=== PATIENT | female | born 1955 | race African-American/Black ===

== ENCOUNTER 2016-12-28 10:07 | Observation (INO) | payer OTHER ==
[2016-12-28] VITALS (9 sets, daily range): BP systolic 124–179; BP diastolic 58–81; PULSE 61–90; RESP 16–21; TEMP 97.8–98.8; O2SAT 96–100
[~2016-12-28] VITALS: Ht 170.2 cm; Wt 75.0 kg
[~2016-12-28 10:07] MED LIST: AMIT100 PO; ARMO250T PO; CYAN1000P IM; DEXT20TA2 PO; ERGO50000 PO; IRON325T2 PO; LISI-586 PO; LOMO2.5T PO; METF500 PO; ROSU20 PO; TAB-TAB PO; ZOFR4TAB3 SL; ZOLO50TA PO; vimovo PO
[2016-12-28 12:37] LABS: AUTOMATED NEUTROPHIL # 5.3 TH/MM3 (1.8-7.7); BASOPHIL % 0.3 % (0.0-2.0); EOSINOPHIL # 0.1 TH/MM3 (0-0.4); EOSINOPHIL % 0.9 % (0.0-4.0); HEMATOCRIT 34.6 % (35.0-46.0); HEMO FLAGS DIFF FINAL; LYMPH % 23.1 % (9.0-44.0); LYMPHOCYTE # 1.8 TH/MM3 (1.0-4.8); MEAN CORPUSCULAR HEMOGLOBIN 29.3 PG (27.0-34.0); MONO % 7.6 % (0.0-8.0); NEUT % 68.1 % (16.0-70.0); PLATELET COUNT 299 TH/MM3 (150-450); RED BLOOD COUNT 4.02 MIL/MM3 (4.00-5.30); RED CELL DISTRIBUTION WIDTH 14.1 % (11.6-17.2); WHITE BLOOD COUNT 7.8 TH/MM3 (4.0-11.0)
[2016-12-28] MEDS ORDERED: LISI20TA PO (12:37)
[2016-12-28] MEDS ORDERED: QUES4POW PO (12:37)
[2016-12-28] MEDS ORDERED: ARMO250T PO (12:37)
[2016-12-28] MEDS ORDERED: ADDE20XR PO (12:37)
[2016-12-28 12:42] LABS: BACTERIA, URINE RARE /hpf; BLOOD, URINE NEG (NEG); COMMENT (UR) CULT NOT INDICATED; CULTURE IF INDICATED CULT NOT INDICATED; GLUCOSE,URINE NEG (NEG); HYALINE CAST, URINE 2 /lpf (RARE); KETONE, URINE NEG (NEG); MUCUS URINE FEW /lpf (OCC); NITRITE,URINE NEG (NEG); SQUAMOUS EPITHELIAL CELL URINE <1 /hpf (0-5); TRANSITIONAL EPI CELLS, URINE <1 /hpf; URINE COLOR YELLOW (YELLW/STRAW)
[2016-12-28 12:48] LABS: PROTHROMBIN TIME - PATIENT 10.9 SEC (9.8-11.6)
[2016-12-28 12:49] LABS: ALT (GPT) 33 U/L (10-53); ANION GAP 5 MEQ/L (5-15); AST (GOT) 17 U/L (15-37); BICARBONATE 30.5 MEQ/L (21.0-32.0); BLOOD UREA NITROGEN 21 MG/DL (7-18); CHLORIDE 104 MEQ/L (98-107); GLOMERULAR FILTRATION RATE 62 ML/MIN (>89); POTASSIUM 3.9 MEQ/L (3.5-5.1); SODIUM (NA) 139 MEQ/L (136-145)
[2016-12-28] MEDS ORDERED: METF500T PO (12:51)
[2016-12-28] MEDS ORDERED: ZOLO100T PO (12:52)
[2016-12-28] MEDS ORDERED: DRIS50002 PO (12:52)
[2016-12-28] MEDS ORDERED: LORA1TAB12 PO (12:52)
[2016-12-28] MEDS ORDERED: ZOFR4TAB3 SL (12:52)
[2016-12-28] MEDS ORDERED: LACTCAP8 PO (12:52)
[2016-12-28] MEDS ORDERED: FERR325T PO (12:52)
[2016-12-28] MEDS ORDERED: CYAN1000P IM (12:52)
[2016-12-28] MEDS ORDERED: MULT-135 PO (12:52)
[2016-12-28] MEDS ORDERED: MSIR15 PO (12:52)
[2016-12-28] MEDS ORDERED: CALC600T25 PO (12:52)
[2016-12-28] MEDS ORDERED: ROSU20 PO (12:52)
[2016-12-28 12:53] LABS: ALKALINE PHOSPHATASE 100 U/L (45-117); TOTAL BILIRUBIN ADULT 0.4 MG/DL (0.2-1.0)
[2016-12-28] MEDS ORDERED: GABA600T PO (12:53)
[2016-12-28 12:54] LABS: CREATINE KINASE 50 U/L (26-192)
--- NOTE | 2016-12-28 12:59 | RADRPT ---
EXAM DATE/TIME: 12/28/2016 12:20 [facility] COMPARISON: CHEST SINGLE AP, September 11, 2015, 19:06. INDICATIONS : Chest pain, feels like something heavy is on chest MEDICAL HISTORY : Pancreatitis. SURGICAL HISTORY : cervical fusion ENCOUNTER: Initial ACUITY: 1 day PAIN SCORE: 8/10 LOCATION: Bilateral chest FINDINGS: A single view of the chest demonstrates the lungs to be symmetrically aerated without evidence of mas s, infiltrate or effusion. The cardiomediastinal contours are unremarkable. Osseous structures are intact. CONCLUSION: No acute disease. Renzo Frazier MD on December 28, 2016 at 12:57 Board Certified Radiologist. This report was verified electronically.
--- NOTE | 2016-12-28 13:10 | PD ---
HPI Chief Complaint: Chest Pain Time Seen by Provider: 11:59 Travel History International Travel<30 days: No Contact w/Intl Traveler<30days: No Traveled to known affect area: No History of Present Illness HPI 61-year-old female complains of chest pain. Patient states that the pain started 2 days ago. Patient states the pain is across anterior chest wall pressure pain with radiation to the neck. Patient denies any palpitation nausea vomiting diaphoresis. Patient denies any fever chills. Patient denies any coughing congestion. Patient states the pain is worse with exertion. Patient states that she had normal thallium stress test done a year ago outside the [facility]. Patient has history hypertension, diabetes, dyslipidemia. Patient is a nonsmoker. Patient has family history of heart disease. PFSH Past Medical History Hx Anticoagulant Therapy: No Autoimmune Disease: No Anxiety: Yes Depression: Yes Heart Rhythm Problems: No Cancer: No Cardiovascular Problems: Yes (HTN) High Cholesterol: Yes Chemotherapy: No Chest Pain: No Congestive Heart Failure: No Cerebrovascular Accident: No Diabetes: Yes Patient Takes Glucophage: Yes (12/27/16 0700) Diminished Hearing: No Endocrine: No Gastrointestinal Disorders: Yes (IBS, FECAL INCONT.) Genitourinary: No Hepatitis: No Hiatal Hernia: No Hypertension: Yes Immune Disorder: No Musculoskeletal: Yes (ARTHRITIS, LUMBAR RADICULOPATHY NUMBNESS IN LEFT TOES) Neurologic: Yes Psychiatric: Yes Reproductive: No Respiratory: Yes (CHRONIC COUGH WITH POST NASAL DRIP) Thyroid Disease: No Tetanus Vaccination: < 5 Years Influenza Vaccination: Yes ?: Not Menopausal: Yes : 3 Para: 3 Miscarriage: 0 : 0 Past Surgical History Abdominal Surgery: Yes (ELKE.,GASTRIC BYPASS,BOWEL REPAIR WITH MESH,) AICD: No Appendectomy: Yes Arteriovenous Shunt: No Cardiac Surgery: No Cholecystectomy: Yes Ear Surgery: No Endocrine Surgery: No Eye Surgery: No Genitourinary Surgery: Yes (RECTAL SPHINCTOPLASTY,) Gynecologic Surgery: Yes (HYSTERECTOMY,) Hysterectomy: Yes Insulin Pump: No Joint Replacement: No Neurologic Surgery: No Oral Surgery: Yes (TONSILLECTOMY) Pacemaker: No Thoracic Surgery: No Other Surgery: Yes (LEFT ROTATOR CUFF REPAIR) Social History Alcohol Use: No Tobacco Use: No Substance Use: No Allergies-Medications (Allergen,Severity, Reaction): Coded Allergies: Codeine (Verified Allergy, Severe, SHARP, INTENSE ABDOMINAL PAIN, 12/28/16) Latex (Verified Allergy, Severe, ANAPHYLAXIS, 12/28/16) Lortab (Verified Allergy, Severe, Itching, 12/28/16) Percodan (Verified Allergy, Severe, Itching, 12/28/16) Talwin (Verified Allergy, Severe, SHORTNESS OF BREATH, 12/28/16) Vicodin (Verified Allergy, Severe, Itching, 12/28/16) Uncoded Allergies: VIBERZI (Allergy, Severe, PAIN, 07/03/16) Reported Meds & Prescriptions Reported Meds & Active Scripts Active Reported Gabapentin 600 Mg Tab 600 Mg PO TID Zoloft (Sertraline HCl) 100 Mg Tab 150 Mg PO DAILY Morphine IR (Morphine Sulfate) 15 Mg Tab 15 Mg PO TID PRN Lorazepam 1 Mg Tab 1 Mg PO HS Crestor (Rosuvastatin Calcium) 20 Mg Tab 20 Mg PO HS Ferrous Sulfate 325 Mg Tab 325 Mg PO BID Cyanocobalamin Inj (Cyanocobalamin) 1,000 Mcg/Ml Inj 1,000 Mcg IM Q30D Drisdol (Ergocalciferol) 50,000 Unit Cap 50,000 Units PO Q7D Calcium (Calcium Carbonate) 600 Mg Tab 600 Mg PO BID Multi Vitamin (Multiple Vitamin) 1 Tab Tab 1 Tab PO DAILY Probiotic (Lactobacillus Acidophilus) 1 Cap Cap 1 Cap PO DAILY Zofran Odt (Ondansetron Odt) 4 Mg Tab 4 Mg SL Q6HR PRN Metformin (Metformin HCl) 500 Mg Tab 500 Mg PO DAILY With a meal Questran (Cholestyramine) 4 Gm/Pkt Powd 4 Gm PO BID 1 packet contains 4gm of cholestyramine. Lisinopril-Hctz 20-12.5 Mg Tab 1 Tab PO DAILY Nuvigil (Armodafinil) 250 Mg Tab 250 Mg PO DAILY Adderall Xr 24 HR (Amphetamine/Dextroamphetamine) 20 Mg Cap 20 Mg PO DAILY Once daily in the morning. Review of Systems General / Constitutional: No: Fever Eyes: No: Visual changes HENT: No: Headaches Cardiovascular: Positive: Chest Pain or Discomfort Respiratory: No: Shortness of Breath Gastrointestinal: No: Abdominal Pain Genitourinary: No: Dysuria Musculoskeletal: No: Pain Skin: No Rash Neurologic: No: Weakness Psychiatric: No: Depression Endocrine: No: Polydipsia Hematologic/Lymphatic: No: Easy Bruising Physical Exam Narrative GENERAL: Well-nourished, well-developed patient. SKIN: Warm and dry. HEAD: Normocephalic. EYES: No scleral icterus. No injection or drainage. NECK: Supple, trachea midline. No JVD or lymphadenopathy. CARDIOVASCULAR: Regular rate and rhythm without murmurs, gallops, or rubs. RESPIRATORY: Breath sounds equal bilaterally. No accessory muscle use. GASTROINTESTINAL: Abdomen soft, non-tender, nondistended. MUSCULOSKELETAL: No cyanosis, or edema. BACK: Nontender without obvious deformity. No CVA tenderness. Neurologic exam normal. Data Data Last Documented VS Vital Signs Date Time Temp Pulse Resp B/P Pulse Ox O2 Delivery O2 Flow Rate FiO2 12/28/16 13:02 62 17 135/61 99 Room Air 12/28/16 10:09 97.8 Orders Electrocardiogram (12/28/16 ) Complete Blood Count With Diff (12/28/16 12:09) Comprehensive Metabolic Panel (12/28/16 12:09) Creatine Kinase (Cpk) (12/28/16 12:09) Troponin I (12/28/16 12:09) Prothrombin Time / Inr (Pt) (12/28/16 12:09) Act Partial Throm Time (Ptt) (12/28/16 12:09) Urinalysis - C+S If Indicated (12/28/16 12:09) Chest, Single Ap (12/28/16 12:09) Iv Access Insert/Monitor (12/28/16 12:09) Ecg Monitoring (12/28/16 12:09) Oximetry (12/28/16 12:09) Labs Laboratory Tests Test 12/28/16 12/28/16 12:14 12:20 White Blood Count 7.8 TH/MM3 Red Blood Count 4.02 MIL/MM3 Hemoglobin 11.8 GM/DL Hematocrit 34.6 % Mean Corpuscular Volume 86.0 FL Mean Corpuscular Hemoglobin 29.3 PG Mean Corpuscular Hemoglobin 34.0 % Concent Red Cell Distribution Width 14.1 % Platelet Count 299 TH/MM3 Mean Platelet Volume 7.5 FL Neutrophils (%) (Auto) 68.1 % Lymphocytes (%) (Auto) 23.1 % Monocytes (%) (Auto) 7.6 % Eosinophils (%) (Auto) 0.9 % Basophils (%) (Auto) 0.3 % Neutrophils # (Auto) 5.3 TH/MM3 Lymphocytes # (Auto) 1.8 TH/MM3 Monocytes # (Auto) 0.6 TH/MM3 Eosinophils # (Auto) 0.1 TH/MM3 Basophils # (Auto) 0.0 TH/MM3 CBC Comment DIFF FINAL Differential Comment Prothrombin Time 10.9 SEC Prothromb Time International 1.0 RATIO Ratio Activated Partial 25.0 SEC Thromboplast Time Sodium Level 139 MEQ/L Potassium Level 3.9 MEQ/L Chloride Level 104 MEQ/L Carbon Dioxide Level 30.5 MEQ/L Anion Gap 5 MEQ/L Blood Urea Nitrogen 21 MG/DL Creatinine 1.08 MG/DL Estimat Glomerular Filtration 62 ML/MIN Rate Random Glucose 74 MG/DL Calcium Level 9.1 MG/DL Total Bilirubin 0.4 MG/DL Aspartate Amino Transf 17 U/L (AST/SGOT) Alanine Aminotransferase 33 U/L (ALT/SGPT) Alkaline Phosphatase 100 U/L Total Creatine Kinase 50 U/L Troponin I LESS THAN 0.02 NG/ML Total Protein 7.1 GM/DL Albumin 3.6 GM/DL Urine Color YELLOW Urine Turbidity CLEAR Urine pH 5.0 Urine Specific [place] 1.015 Urine Protein NEG mg/dL Urine Glucose (UA) NEG mg/dL Urine Ketones NEG mg/dL Urine Occult Blood NEG Urine Nitrite NEG Urine Bilirubin NEG Urine Urobilinogen 2.0 MG/DL Urine Leukocyte Esterase MOD Urine RBC 1 /hpf Urine WBC 3 /hpf Urine Squamous Epithelial <1 /hpf Cells Urine Transitional Epithelial <1 /hpf Cells Urine Bacteria RARE /hpf Urine Hyaline Casts 2 /lpf Urine Mucus FEW /lpf Microscopic Urinalysis Comment CULT NOT INDICATED MDM Medical Decision Making Medical Screen Exam Complete: Yes Emergency Medical Condition: Yes Interpretation(s) 1308 p.m. EKG shows sinus rhythm nonspecific ST-T wave change. Last Impressions Chest X-Ray 12/28/16 1209 Signed Impressions: Service Date/Time: Wednesday, December 28, 2016 12:20 - CONCLUSION: No acute disease. Renzo Frazier MD 1308 p.m. CBC within normal limit. CMP within normal limit. BUN 21. Creatinine 1.08. Cardiac enzymes are normal. UA is negative. Differential Diagnosis Differential diagnosis including musculoskeletal, angina, IN, PE, pneumothorax. Narrative Course 61-year-old female with chest pain. Diagnosis Primary Impression: Chest pain Qualified Code: R07.9 - Chest pain, unspecified type Admitting Information Admitting Physician Requests: Observation Tom Baker MD Dec 28, 2016 13:10
[2016-12-28] MEDS ORDERED: ACETAMINOPHEN 500 MG CPLT PO PRN (13:30)
[2016-12-28] MEDS ORDERED: SODIUM CHLORIDE 0.9% FLUSH 5 ML FLUSH IVF PRN (13:30)
[2016-12-28] MEDS ORDERED: NITROGLYCERIN 0.4 MG SL 25 TABS/BTL SL PRN (14:00)
[2016-12-28] MEDS ORDERED: DEXTROSE 50% IN WATER 50 ML VIAL(D50) IV PRN (14:00)
[2016-12-28] MEDS ORDERED: MORPHINE SULFATE 15 MG TAB PO PRN (14:00)
[2016-12-28] MEDS ORDERED: ALPRAZolam 0.25 MG TAB PO PRN (14:00)
[2016-12-28] MEDS ORDERED: GLUCAGON 1 MG/ML VIAL IM/SQ PRN (14:00)
--- NOTE | 2016-12-28 14:08 | HHI.HP ---
[facility] Primary Care Physician Claudio Yee M.D. Chief Complaint Chest pain History of Present Illness This is a 61-year-old female that presents to the ED complaining of a discomfort across her chest that's been intermittently present for a week. She states the discomfort primarily presents when she does activities like walking. Rarely has it occurred at rest but when it does it is when she is getting ready for bed in the evening. She states the discomfort will last for about an hour when it occurs. Nothing to improve when occurs. She had times has been nauseous and he did take some Zofran that she has at home. She also has at times been a little diaphoretic. She has not noticed shortness of breath. She has history of chronic pancreatitis but has had no abdominal discomfort. She states she had a chemical stress test a little more than a year ago before moving here from [place]. Review of Systems General: Patient denies fevers, chills recent, and recent travel HEENT: Patient denies headache, sore throat, difficulty swallowing. Cardiovascular: Has the chest discomfort as mentioned above. Denies sensation of heart beating rapidly or irregularly. She has had some diaphoresis. No syncope. Respiratory: Denies shortness of breath or inspirational chest discomfort. Denies coughing wheezing or hemoptysis. GI: She has had some nausea. Patient denies vomiting, diarrhea, abdominal pain , bloody stools. Musculoskeletal: Patient denies joint pain or edema. Denies calf pain or edema. Neurovascular: Patient denies numbness, tingling, weakness in extremities. Denies headache. Endocrine: Denies polyuria and polydipsia. Hematologic: Denies easy bruising. Skin: Denies rash or itching. Past Family Social History Allergies: Coded Allergies: Codeine (Verified Allergy, Severe, SHARP, INTENSE ABDOMINAL PAIN, 12/28/16) Latex (Verified Allergy, Severe, ANAPHYLAXIS, 12/28/16) Lortab (Verified Allergy, Severe, Itching, 12/28/16) Percodan (Verified Allergy, Severe, Itching, 12/28/16) Talwin (Verified Allergy, Severe, SHORTNESS OF BREATH, 12/28/16) Vicodin (Verified Allergy, Severe, Itching, 12/28/16) Uncoded Allergies: VIBERZI (Allergy, Severe, PAIN, 07/03/16) Past Medical History Hypertension, diabetes, hyperlipidemia, chronic pancreatitis, and idiopathic hypersomnia. Denies CAD. Past Surgical History Left rotator cuff repair, tonsillectomy, hysterectomy, cholecystectomy, appendectomy. Reported Medications Reported Meds & Active Scripts Active Reported Gabapentin 600 Mg Tab 600 Mg PO TID Zoloft (Sertraline HCl) 100 Mg Tab 150 Mg PO DAILY Morphine IR (Morphine Sulfate) 15 Mg Tab 15 Mg PO TID PRN Lorazepam 1 Mg Tab 1 Mg PO DAILY PRN Crestor (Rosuvastatin Calcium) 20 Mg Tab 20 Mg PO HS Ferrous Sulfate 325 Mg Tab 325 Mg PO BID Cyanocobalamin Inj (Cyanocobalamin) 1,000 Mcg/Ml Inj 1,000 Mcg IM Q30D Drisdol (Ergocalciferol) 50,000 Unit Cap 50,000 Units PO WEEKLY ON WEDNESDAYS Calcium (Calcium Carbonate) 600 Mg Tab 600 Mg PO BID Multi Vitamin (Multiple Vitamin) 1 Tab Tab 1 Tab PO DAILY Probiotic (Lactobacillus Acidophilus) 1 Cap Cap 1 Cap PO DAILY Zofran Odt (Ondansetron Odt) 4 Mg Tab 4 Mg SL Q6HR PRN Metformin (Metformin HCl) 500 Mg Tab 500 Mg PO DAILY With a meal Questran (Cholestyramine) 4 Gm/Pkt Powd 4 Gm PO BID 1 packet contains 4gm of cholestyramine. Lisinopril-Hctz 20-12.5 Mg Tab 1 Tab PO DAILY Nuvigil (Armodafinil) 250 Mg Tab 250 Mg PO DAILY Adderall Xr 24 HR (Amphetamine/Dextroamphetamine) 20 Mg Cap 20 Mg PO DAILY Once daily in the morning. Active Ordered Medications Current Medications Medications (Trade) Dose Ordered Sig/Nyla Route Start Time Stop Time Status Last Admin (NS Flush) 2 ml UNSCH PRN IVF 12/28/16 13:30 (NS Flush) 2 ml BID IVF 12/28/16 21:00 (Tylenol) 500 mg Q4H PRN PO 12/28/16 13:30 (Zofran Inj) 4 mg Q6H PRN IV 12/28/16 14:00 (Nitrostat Sl) 0.4 mg Q5M PRN SL 12/28/16 14:00 (Questran 4 Gm Pkt) 4 gm BID PO 12/28/16 21:00 UNV (Ferrous Sulfate) 325 mg BID PO 12/28/16 21:00 UNV (Neurontin) 600 mg TID PO 12/28/16 18:00 UNV (Theragran) 1 tab DAILY PO 12/29/16 09:00 UNV (Zoloft) 150 mg DAILY PO 12/29/16 09:00 UNV Non-Formulary Medication 1 tab DAILY PO 12/29/16 09:00 UNV Non-Formulary Medication 20 mg HS PO 12/28/16 21:00 UNV Family History The patient's mother had a stent at age 66. Social History Patient is a lifetime nonsmoker. She denies alcohol use and illicit drug use. Physical Exam Vital Signs Vital Signs Date Time Temp Pulse Resp B/P Pulse Ox O2 Delivery O2 Flow Rate FiO2 12/28/16 13:02 62 17 135/61 99 Room Air 12/28/16 12:32 100 Room Air 12/28/16 12:08 64 16 100 Room Air 12/28/16 12:07 61 16 179/81 100 Room Air 12/28/16 10:09 97.8 90 16 139/63 100 Physical Exam GENERAL: This is a well-nourished, well-developed patient, in no apparent distress. Patient speaks in clear complete sentences. Patient is pleasant. HEENT: Head is atraumatic and normocephalic. Neck is supple without lymphadenopathy and trachea is midline. No JVD or carotid bruits. CARDIOVASCULAR: Regular rate and rhythm without murmurs, gallops, or rubs. RESPIRATORY: Clear to auscultation. Breath sounds equal bilaterally. No wheezes , rales, or rhonchi. Chest wall is nontender. No use of accessory muscles. GASTROINTESTINAL: Abdomen is nontender, nondistended. Abdomen soft. No obvious pulsatile mass or bruit. No CVA tenderness. Strong femoral pulses bilaterally. Normal bowel sounds in all quadrants. MUSCULOSKELETAL: Patient is moving upper and lower extremities freely. No calf tenderness or edema, no Homans sign. Strong pulses in upper and lower extremities. NEUROLOGICAL: Patient is alert and oriented. Cranial nerves 2-12 are grossly intact. No focal deficits and speech is clear. SKIN: No rash and turgor is normal. Laboratory Laboratory Tests Test 12/28/16 12/28/16 12:14 12:20 White Blood Count 7.8 Red Blood Count 4.02 Hemoglobin 11.8 Hematocrit 34.6 Mean Corpuscular Volume 86.0 Mean Corpuscular Hemoglobin 29.3 Mean Corpuscular Hemoglobin 34.0 Concent Red Cell Distribution Width 14.1 Platelet Count 299 Mean Platelet Volume 7.5 Neutrophils (%) (Auto) 68.1 Lymphocytes (%) (Auto) 23.1 Monocytes (%) (Auto) 7.6 Eosinophils (%) (Auto) 0.9 Basophils (%) (Auto) 0.3 Neutrophils # (Auto) 5.3 Lymphocytes # (Auto) 1.8 Monocytes # (Auto) 0.6 Eosinophils # (Auto) 0.1 Basophils # (Auto) 0.0 CBC Comment DIFF FINAL Differential Comment Prothrombin Time 10.9 Prothromb Time International 1.0 Ratio Activated Partial 25.0 Thromboplast Time Sodium Level 139 Potassium Level 3.9 Chloride Level 104 Carbon Dioxide Level 30.5 Anion Gap 5 Blood Urea Nitrogen 21 Creatinine 1.08 Estimat Glomerular Filtration 62 Rate Random Glucose 74 Calcium Level 9.1 Total Bilirubin 0.4 Aspartate Amino Transf 17 (AST/SGOT) Alanine Aminotransferase 33 (ALT/SGPT) Alkaline Phosphatase 100 Total Creatine Kinase 50 Troponin I LESS THAN 0.02 Total Protein 7.1 Albumin 3.6 Urine Color YELLOW Urine Turbidity CLEAR Urine pH 5.0 Urine Specific [place] 1.015 Urine Protein NEG Urine Glucose (UA) NEG Urine Ketones NEG Urine Occult Blood NEG Urine Nitrite NEG Urine Bilirubin NEG Urine Urobilinogen 2.0 Urine Leukocyte Esterase MOD Urine RBC 1 Urine WBC 3 Urine Squamous Epithelial <1 Cells Urine Transitional Epithelial <1 Cells Urine Bacteria RARE Urine Hyaline Casts 2 Urine Mucus FEW Microscopic Urinalysis Comment CULT NOT INDICATED Result Diagram: 12/28/16 1214 12/28/16 1214 Imaging Last 24 hours Impressions Chest X-Ray 12/28/16 1209 Signed Impressions: Service Date/Time: Wednesday, December 28, 2016 12:20 - CONCLUSION: No acute disease. Renzo Frazier MD Course Initial EKG has sinus rhythm without significant ST segment depressions or elevations. Assessment and Plan Assessment and Plan * Chest pain: Patient will continue to have serial cardiac enzymes and EKGs for ruling out purposes. She will be seen by Dr. Luis Cordova of cardiology and the chest pain center. She will have a Lexiscan in the morning if she rules out. She will be discharged home if her stress test were to be nonischemic. * Hypertension: Continue current medication. * Hyperlipidemia: Continue current medications. * Diabetes: We will hold her metformin. Patient will be on sliding scale insulin coverage while the chest pain center. She will be advised to follow a diabetic diet and resume her medication at discharge. * Chronic pancreatitis: Continue current medication and continue her follow-up with her PCP. * Idiopathic hypersomnia: Patient will resume her medication at discharge. Nigel Maldonado Dec 28, 2016 14:08
[2016-12-28] MEDS: INSULIN ASPART SUPPLEMENTAL SCALE SQ SCH ×2 (16:00→21:00)
[2016-12-28 16:21] LABS: CREATINE KINASE 44 U/L (26-192)
--- NOTE | 2016-12-28 17:12 | EKG ---
Date Performed: 12/28/2016 Time Performed: 10:22:20 PTAGE: 61 years EKG: Sinus rhythm Compared to prior tracing no significant change NORMAL ECG PREVIOUS TRACING : 05/24/2016 17.39 DOCTOR: Edgar Johnson Interpretating Date/Time 12/28/2016 17:01:28
[2016-12-28] MEDS: GABAPENTIN 300 MG CAP PO SCH (17:45)
[2016-12-28 19:23] LABS: CREATINE KINASE 41 U/L (26-192)
[2016-12-28] MEDS: CHOLESTYRAMINE 4 GM PACKET PO SCH (20:19)
[2016-12-28] MEDS: ONDANSETRON HCL 4 MG/2 ML VIAL IV PRN (20:19)
[2016-12-28] MEDS ORDERED: NON-FORMULARY DRUG (Rosuvastatin (Crestor) 20 MG) PO SCH (21:00)
[2016-12-28] MEDS ORDERED: ATORVASTATIN 40 MG TAB PO SCH (21:00)
[2016-12-28] MEDS: FERROUS SULFATE 325 MG (65 MG ELEMENTAL IRON) TAB PO SCH (22:07)
[2016-12-28] MEDS: SODIUM CHLORIDE 0.9% FLUSH 5 ML FLUSH IVF SCH (22:11)
[2016-12-29] VITALS: PULSE 60
[2016-12-29 00:06] VITALS: BP 109/59; PULSE 69; RESP 18; TEMP 98.8; O2SAT 98
[2016-12-29 04:00] VITALS: PULSE 61
[2016-12-29 05:54] VITALS: BP 134/76; PULSE 78; RESP 18; TEMP 98.8; O2SAT 97
[2016-12-29] MEDS: INSULIN ASPART SUPPLEMENTAL SCALE SQ SCH (06:39)
[2016-12-29 07:25] VITALS: BP 112/56; PULSE 60; RESP 20; TEMP 98.1; O2SAT 96
[2016-12-29] MEDS: FERROUS SULFATE 325 MG (65 MG ELEMENTAL IRON) TAB PO SCH (08:53)
[2016-12-29] MEDS: GABAPENTIN 300 MG CAP PO SCH (08:54)
[2016-12-29] MEDS: SODIUM CHLORIDE 0.9% FLUSH 5 ML FLUSH IVF SCH (08:54)
[2016-12-29] MEDS: CHOLESTYRAMINE 4 GM PACKET PO SCH (08:54)
[2016-12-29] MEDS ORDERED: LISINOPRIL HCTZ PO SCH (09:00)
[2016-12-29] MEDS ORDERED: MULTIVITAMIN TAB PO SCH (09:00)
[2016-12-29] MEDS ORDERED: SERTRALINE HCL 50 MG TAB PO SCH (09:00)
[2016-12-29] MEDS ORDERED: HYDROCHLOROTHIAZIDE 12.5 MG CAP PO SCH (09:00)
[2016-12-29] MEDS ORDERED: LISINOPRIL 20 MG TAB PO SCH (09:00)
[2016-12-29] MEDS ORDERED: REGADENOSON INJ 0.4 MG/5 ML SYR ONE (09:50)
--- NOTE | 2016-12-29 11:17 | RADRPT ---
EXAM DATE/TIME: 12/29/2016 09:19 [facility] COMPARISON: No previous studies available for comparison. INDICATIONS : Mid chest pain intermittent for one week. Angina. DOSE: 25.7 mCi Tc99m Myoview at stress. 8.7 mCi Tc99m Myoview at rest. 0.4 mg Lexiscan STRESS SYMPTOMS: Flush feeling. EJECTION FRACTION: 61% MEDICAL HISTORY : Hypertension. SURGICAL HISTORY : Appendectomy. Hysterectomy. Gastric bypass. ENCOUNTER: Initial ACUITY: 1 week PAIN SCALE: 4/10 LOCATION: Midsternal chest TECHNIQUE: The patient underwent pharmacologic stress with infusion of prescribed dose. Continuous ECG tracing was monitored during stress. Gated SPECT imaging was performed after stress and conventional SPECT i maging was performed at rest. The examination was performed on a SPECT/CT scanner, both attenuation and non-corrected datasets were reviewed. FINDINGS: DISTRIBUTION: The maximum perfused segment at stress is in the anterior wall. PERFUSION STUDY: There is a very small focus of reversible perfusion abnormality at the cardiac apex. GATED STUDY: There is intact wall motion and thickening without hypokinetic or dyskinetic segments. CONCLUSION: Small, mild focus of apical stress-induced ischemia. RISK CATEGORY: Intermediate Woody Sinha MD on December 29, 2016 at 11:15 Board Certified Radiologist. This report was verified electronically.
[2016-12-29] MEDS: ONDANSETRON HCL 4 MG/2 ML VIAL IV PRN (11:28)
[2016-12-29 11:34] VITALS: BP 117/56; PULSE 71; RESP 20; TEMP 98; O2SAT 95
[2016-12-29] MEDS ORDERED: NITR1SUB3 SL (12:40)
[2016-12-29] MEDS ORDERED: METO25TA3 PO (12:40)
--- NOTE | 2016-12-29 12:56 | HHI.DCPOC ---
Discharge Care Plan Diagnosis: (1) Chest pain (2) Hypertension (3) DM (diabetes mellitus) (4) Hyperlipidemia (5) Abnormal nuclear stress test Goals to Promote Your Health * To prevent worsening of your condition and complications * To maintain your health at the optimal level Directions to Meet Your Goals Take your medications as prescribed Follow your dietary instruction Follow activity as directed Keep your appointments as scheduled Take your immunizations and boosters as scheduled If your symptoms worsen call your PCP, if no PCP go to Urgent Care Center or Emergency Room Smoking is Dangerous to Your Health. Avoid second hand smoke Call the 24-hour hour crisis hotline for domestic abuse at Nigel Maldonado Dec 29, 2016 12:56
--- NOTE | 2016-12-29 16:43 | TR ---
Date Performed: 12/29/2016 Time Performed: 09:51:58 DOCTOR: Teto Pratt DRUG LIST: CLINICAL HISTORY: ANGINA REASON FOR TEST: Angina REASON FOR ENDING: OBSERVATION: CONCLUSION: Lexiscan stress test was performed under standard four minute protocol. Radionucl[place] e was injected one minute prior to ending the test. No electrocardiographic abormalities were present to suggest ischemia. Nuclear imaging and interpretation are pending. COMMENTS:
--- NOTE | 2016-12-29 16:48 | EKG ---
Date Performed: 12/28/2016 Time Performed: 15:25:30 PTAGE: 61 years EKG: Sinus rhythm NORMAL ECG PREVIOUS TRACING : 12/28/2016 10.22 Since previous tracing, no significant change noted DOCTOR: Teto Pratt Interpretating Date/Time 12/29/2016 16:47:59
--- NOTE | 2016-12-29 16:48 | EKG ---
Date Performed: 12/28/2016 Time Performed: 18:26:19 PTAGE: 61 years EKG: Sinus rhythm WITH OCCASIONAL VENTRICULAR PREMATURE COMPLEXES BORDERLINE ECG PREVIOUS TRACING : 12/28/2016 15.25 Since previous tracing, no significant change noted DOCTOR: Teto Pratt Interpretating Date/Time 12/29/2016 16:47:09
== END 2016-12-29 15:01 | disposition home or self-care (01) ==
LOC: NEPC 10:07 → NEDA 13:27 → NEPHCDU 15:59
PROVIDERS: ADMIT Internal Medicine Cardiovascular Disease; ATTEND Internal Medicine Cardiovascular Disease
DX: R07.9 Chest pain, unspecified (principal); I10 Essential (primary) hypertension; E11.9 Type 2 diabetes mellitus without complications; E78.5 Hyperlipidemia, unspecified; G47.11 Idiopathic hypersomnia with long sleep time; K86.1 Other chronic pancreatitis; R94.39 Abnormal result of other cardiovascular function study; E78.00 Pure hypercholesterolemia, unspecified; K58.9 Irritable bowel syndrome, unspecified; Z82.49 Family history of ischemic heart disease and other diseases of the circulatory system; Z98.84 Bariatric surgery status; Z79.84 Long term (current) use of oral hypoglycemic drugs
CPT/HCPCS: 71010; 78452; 80053; 81001; 82550; 82948; 84484; 85025; 85610; 85730; 93005; 93017; 99285; A9502; G0378; J2405; J2785

== ENCOUNTER 2017-01-09 14:15 | Emergency (ER) | payer OTHER ==
[~2017-01-09] VITALS: Ht 170.2 cm; Wt 72.5 kg
[~2017-01-09 14:15] MED LIST changes: +ADDE20XR PO; -AMIT100 PO; +CALC600T25 PO; -DEXT20TA2 PO; +DRIS50002 PO; -ERGO50000 PO; +FERR325T PO; +GABA600T PO; -IRON325T2 PO; +LACTCAP8 PO; -LISI-586 PO; +LISI20TA PO; -LOMO2.5T PO; +LORA1TAB12 PO; -METF500 PO; +METF500T PO; +METO25TA3 PO; +MSIR15 PO; +MULT-135 PO; +NITR1SUB3 SL; +QUES4POW PO; -TAB-TAB PO; +ZOLO100T PO; -ZOLO50TA PO; -vimovo PO
[2017-01-09 14:16] VITALS: BP 112/59; PULSE 94; RESP 18; TEMP 98.2; O2SAT 94
--- NOTE | 2017-01-09 15:03 | PD ---
HPI Chief Complaint: Abdominal Pain Time Seen by Provider: 15:03 Travel History International Travel<30 days: No Contact w/Intl Traveler<30days: No Traveled to known affect area: No History of Present Illness HPI 61-year-old female with history of gastric bypass, colon resection, pancreatitis , CAD, asthma, presents to emergency department for evaluation of acute onset abdominal pain in her epigastrium and left upper quadrant with associated nausea and vomiting. She states that she leave she may have aspirated some of the bile. This all started approximately one hour prior to arrival. Patient has not been recently ill. No fever or chills. No changes in bowel or bladder habits. Patient states this feels very similar to when she had an obstruction in the past. She has no other symptoms to report. PFSH Past Medical History Hx Anticoagulant Therapy: No Autoimmune Disease: No Anxiety: Yes Depression: Yes Heart Rhythm Problems: No Cancer: No Cardiac Catheterization: No Cardiovascular Problems: Yes High Cholesterol: Yes Chemotherapy: No Chest Pain: No Congestive Heart Failure: No Cerebrovascular Accident: No Diabetes: Yes Diminished Hearing: No Endocrine: No Gastrointestinal Disorders: Yes (IBS, FECAL INCONT.) Genitourinary: No Hepatitis: No Hiatal Hernia: No Hypertension: Yes Immune Disorder: No Musculoskeletal: Yes (ARTHRITIS, LUMBAR RADICULOPATHY NUMBNESS IN LEFT TOES) Neurologic: Yes Psychiatric: Yes Reproductive: No Respiratory: Yes (CHRONIC COUGH WITH POST NASAL DRIP) Thyroid Disease: No ?: Not Menopausal: Yes : 3 Para: 3 Miscarriage: 0 : 0 Past Surgical History Abdominal Surgery: Yes (ELKE.,GASTRIC BYPASS,BOWEL REPAIR WITH MESH,) AICD: No Appendectomy: Yes Arteriovenous Shunt: No Cardiac Surgery: No Cholecystectomy: Yes Coronary Artery Bypass Graft: No Ear Surgery: No Endocrine Surgery: No Eye Surgery: No Genitourinary Surgery: Yes (RECTAL SPHINCTOPLASTY,) Gynecologic Surgery: Yes (HYSTERECTOMY,) Hysterectomy: Yes Insulin Pump: No Joint Replacement: No Neurologic Surgery: No Oral Surgery: Yes (TONSILLECTOMY) Pacemaker: No Thoracic Surgery: No Other Surgery: Yes (LEFT ROTATOR CUFF REPAIR) Social History Alcohol Use: No Tobacco Use: No Substance Use: No Allergies-Medications (Allergen,Severity, Reaction): Coded Allergies: Codeine (Verified Allergy, Severe, SHARP, INTENSE ABDOMINAL PAIN, 01/09/17) Latex (Verified Allergy, Severe, ANAPHYLAXIS, 01/09/17) Lortab (Verified Allergy, Severe, Itching, 01/09/17) Percodan (Verified Allergy, Severe, Itching, 01/09/17) Talwin (Verified Allergy, Severe, SHORTNESS OF BREATH, 01/09/17) Vicodin (Verified Allergy, Severe, Itching, 01/09/17) Uncoded Allergies: VIBERZI (Allergy, Severe, PAIN, 07/03/16) Reported Meds & Prescriptions Reported Meds & Active Scripts Active Metoprolol Tartrate 25 Mg Tab 25 Mg PO BID Nitroglycerin SL (Nitroglycerin) 0.4 Mg Subl 0.4 Mg SL DIRECTED PRN ONE TABLET UNDER THE TONGUE NEEDED FOR CHEST PAIN, MAY REPEAT EVERY FIVE MINUTES FOR A TOTAL OF 3 DOSES OR CALL 911 IF NO RELIEF Reported Gabapentin 600 Mg Tab 600 Mg PO TID Zoloft (Sertraline HCl) 100 Mg Tab 150 Mg PO DAILY Morphine IR (Morphine Sulfate) 15 Mg Tab 15 Mg PO TID PRN Lorazepam 1 Mg Tab 1 Mg PO DAILY PRN Crestor (Rosuvastatin Calcium) 20 Mg Tab 20 Mg PO HS Ferrous Sulfate 325 Mg Tab 325 Mg PO BID Cyanocobalamin Inj (Cyanocobalamin) 1,000 Mcg/Ml Inj 1,000 Mcg IM Q30D Drisdol (Ergocalciferol) 50,000 Unit Cap 50,000 Units PO WEEKLY ON WEDNESDAYS Calcium (Calcium Carbonate) 600 Mg Tab 600 Mg PO BID Multi Vitamin (Multiple Vitamin) 1 Tab Tab 1 Tab PO DAILY Probiotic (Lactobacillus Acidophilus) 1 Cap Cap 1 Cap PO DAILY Zofran Odt (Ondansetron Odt) 4 Mg Tab 4 Mg SL Q6HR PRN Metformin (Metformin HCl) 500 Mg Tab 500 Mg PO DAILY With a meal Questran (Cholestyramine) 4 Gm/Pkt Powd 4 Gm PO BID 1 packet contains 4gm of cholestyramine. Lisinopril-Hctz 20-12.5 Mg Tab 1 Tab PO DAILY Nuvigil (Armodafinil) 250 Mg Tab 250 Mg PO DAILY Adderall Xr 24 HR (Amphetamine/Dextroamphetamine) 20 Mg Cap 20 Mg PO DAILY Once daily in the morning. Review of Systems Except as stated in HPI: all other systems reviewed are Neg Physical Exam Narrative GENERAL: Thin female patient, lying in bed in no acute distress. SKIN: Warm and dry. HEAD: Atraumatic. Normocephalic. EYES: Pupils equal and round. No scleral icterus. No injection or drainage. ENT: No nasal bleeding or discharge. Mucous membranes pink and moist. NECK: Trachea midline. No JVD. CARDIOVASCULAR: Elevated rate and rhythm. No murmur appreciated. RESPIRATORY: No accessory muscle use. Clear to auscultation. Breath sounds equal bilaterally. GASTROINTESTINAL: Abdomen soft, nondistended. Tenderness elicited palpation in the epigastrium.. Hepatic and splenic margins not palpable. MUSCULOSKELETAL: No obvious deformities. No clubbing. No cyanosis. No edema. NEUROLOGICAL: Awake and alert. No obvious cranial nerve deficits. Motor grossly within normal limits. Normal speech. PSYCHIATRIC: Appropriate mood and affect; insight and judgment normal. Data Data Last Documented VS Vital Signs Date Time Temp Pulse Resp B/P Pulse Ox O2 Delivery O2 Flow Rate FiO2 01/09/17 17:47 18 01/09/17 14:16 98.2 94 112/59 94 Room Air Orders Complete Blood Count With Diff (01/09/17 14:58) Comprehensive Metabolic Panel (01/09/17 14:58) Lipase (01/09/17 14:58) Prothrombin Time / Inr (Pt) (01/09/17 14:58) Act Partial Throm Time (Ptt) (01/09/17 14:58) Urinalysis - C+S If Indicated (01/09/17 14:58) Abdomen, Flat & Upright (01/09/17 ) Electrocardiogram (01/09/17 14:58) Chest, Single Ap (01/09/17 ) Ckmb (Isoenzyme) Profile (01/09/17 14:58) Troponin I (01/09/17 14:58) Urine Culture (01/09/17 15:25) Labs Laboratory Tests Test 01/09/17 01/09/17 15:15 15:25 White Blood Count 10.8 TH/MM3 Red Blood Count 3.64 MIL/MM3 Hemoglobin 10.3 GM/DL Hematocrit 32.0 % Mean Corpuscular Volume 87.8 FL Mean Corpuscular Hemoglobin 28.2 PG Mean Corpuscular Hemoglobin 32.2 % Concent Red Cell Distribution Width 13.8 % Platelet Count 222 TH/MM3 Mean Platelet Volume 7.2 FL Neutrophils (%) (Auto) 65.7 % Lymphocytes (%) (Auto) 21.9 % Monocytes (%) (Auto) 9.7 % Eosinophils (%) (Auto) 2.4 % Basophils (%) (Auto) 0.3 % Neutrophils # (Auto) 7.1 TH/MM3 Lymphocytes # (Auto) 2.4 TH/MM3 Monocytes # (Auto) 1.0 TH/MM3 Eosinophils # (Auto) 0.3 TH/MM3 Basophils # (Auto) 0.0 TH/MM3 CBC Comment DIFF FINAL Differential Comment Prothrombin Time 10.2 SEC Prothromb Time International 0.9 RATIO Ratio Activated Partial 23.4 SEC Thromboplast Time Sodium Level 136 MEQ/L Potassium Level 3.8 MEQ/L Chloride Level 102 MEQ/L Carbon Dioxide Level 25.4 MEQ/L Anion Gap 9 MEQ/L Blood Urea Nitrogen 31 MG/DL Creatinine 1.18 MG/DL Estimat Glomerular Filtration 56 ML/MIN Rate Random Glucose 52 MG/DL Calcium Level 8.6 MG/DL Total Bilirubin 0.2 MG/DL Aspartate Amino Transf 19 U/L (AST/SGOT) Alanine Aminotransferase 40 U/L (ALT/SGPT) Alkaline Phosphatase 111 U/L Total Creatine Kinase 37 U/L Troponin I LESS THAN 0.02 NG/ML Total Protein 6.7 GM/DL Albumin 3.0 GM/DL Lipase 151 U/L Urine Color LIGHT-YELLOW Urine Turbidity CLEAR Urine pH 5.0 Urine Specific [place] 1.012 Urine Protein NEG mg/dL Urine Glucose (UA) NEG mg/dL Urine Ketones NEG mg/dL Urine Occult Blood NEG Urine Nitrite NEG Urine Bilirubin NEG Urine Urobilinogen LESS THAN 2.0 MG/DL Urine Leukocyte Esterase LARGE Urine RBC 1 /hpf Urine WBC 23 /hpf Urine Squamous Epithelial 1 /hpf Cells Urine Transitional Epithelial 1 /hpf Cells Urine Bacteria OCC /hpf Urine Hyaline Casts 2 /lpf Urine Mucus FEW /lpf Microscopic Urinalysis Comment CULTURE INDICATED MDM Medical Decision Making Medical Screen Exam Complete: Yes Emergency Medical Condition: Yes Medical Record Reviewed: Yes Differential Diagnosis Pancreatitis versus gastritis versus GERD versus obstruction versus ACS Narrative Course 61-year-old female presents to emergency department for evaluation. Workup was initiated in triage. Once a medical bed becomes available, patient will be transferred and care assumed by that provider. Condition: Stable Shayna Martin Jan 09, 2017 15:03
[2017-01-09 15:48] LABS: AUTOMATED NEUTROPHIL # 7.1 TH/MM3 (1.8-7.7); BASOPHIL % 0.3 % (0.0-2.0); EOSINOPHIL # 0.3 TH/MM3 (0-0.4); EOSINOPHIL % 2.4 % (0.0-4.0); HEMO FLAGS DIFF FINAL; LYMPH % 21.9 % (9.0-44.0); LYMPHOCYTE # 2.4 TH/MM3 (1.0-4.8); MEAN CELL VOLUME 87.8 FL (80.0-100.0); MEAN CORPUSCULAR HEMOGLOBIN 28.2 PG (27.0-34.0); MEAN CORPUSCULAR HGB CONC 32.2 % (32.0-36.0); MONO % 9.7 % (0.0-8.0); NEUT % 65.7 % (16.0-70.0); PLATELET COUNT 222 TH/MM3 (150-450); RED BLOOD COUNT 3.64 MIL/MM3 (4.00-5.30); RED CELL DISTRIBUTION WIDTH 13.8 % (11.6-17.2); WHITE BLOOD COUNT 10.8 TH/MM3 (4.0-11.0)
[2017-01-09 15:56] LABS: APTT (PATIENT) 23.4 SEC (24.3-30.1); INTERNATIONAL NORMALIZED RATIO 0.9 RATIO; PROTHROMBIN TIME - PATIENT 10.2 SEC (9.8-11.6)
--- NOTE | 2017-01-09 15:57 | RADRPT ---
EXAM DATE/TIME: 01/09/2017 15:41 [facility] COMPARISON: CHEST SINGLE AP, December 28, 2016, 12:20. INDICATIONS : Evaluate for aspiration. Patient stated she vomited this afternoon; she has had a cough and upper abd omen pain since. MEDICAL HISTORY : Hypertension. Hypercholesterolemia. Hyperlididerma. Asthma. SURGICAL HISTORY : Cholecystectomy. Appendectomy. Hysterectomy. Gastric bypass. Rectal sphinctoplasty. Cervical fusion. ENCOUNTER: Initial ACUITY: 1 day PAIN SCORE: 4/10 LOCATION: Bilateral chest FINDINGS: A single view of the chest demonstrates the lungs to be symmetrically aerated without evidence of mas s, infiltrate or effusion. The cardiomediastinal contours are unremarkable. Osseous structures are intact. CONCLUSION: No acute disease. Truman Rosales MD FACR on January 09, 2017 at 15:55 Board Certified Radiologist. This report was verified electronically.
--- NOTE | 2017-01-09 16:04 | RADRPT ---
EXAM DATE/TIME: 01/09/2017 15:40 [facility] COMPARISON: No previous studies available for comparison. INDICATIONS : Vomited today. Patient stated she vomited this afternoon; she has had a cough and upper abdomen pain since.>> MEDICAL HISTORY : Hypertension. Hypercholesterolemia. Hyperlipidemia. Asthma. SURGICAL HISTORY : Cholecystectomy. Appendectomy. Hysterectomy. Gastric bypass. Rectal sphinctopl asty. Cervical fusion. ENCOUNTER: Initial ACUITY: 1 day PAIN SCORE: 4/10 LOCATION: Abdomen, upper quadrant. FINDINGS: The lung bases are clear. Evidence for previous surgery is seen in the right upper eileen drant. Bowel gas pattern is unremarkable. There is no free air. Moderate stool is seen throughout the colon. CONCLUSION: Moderate stool throughout the colon otherwise negative. Truman Rosales MD FACR on January 09, 2017 at 15:55 Board Certified Radiologist. This report was verified electronically.
[2017-01-09 16:05] LABS: BACTERIA, URINE OCC /hpf; BLOOD, URINE NEG (NEG); COMMENT (UR) CULTURE INDICATED; CULTURE IF INDICATED CULTURE INDICATED; GLUCOSE,URINE NEG (NEG); HYALINE CAST, URINE 2 /lpf (RARE); KETONE, URINE NEG (NEG); MUCUS URINE FEW /lpf (OCC); NITRITE,URINE NEG (NEG); SQUAMOUS EPITHELIAL CELL URINE 1 /hpf (0-5); TRANSITIONAL EPI CELLS, URINE 1 /hpf; URINE COLOR LIGHT-YELLOW (YELLW/STRAW)
[2017-01-09 16:15] LABS: ANION GAP 9 MEQ/L (5-15); AST (GOT) 19 U/L (15-37); BICARBONATE 25.4 MEQ/L (21.0-32.0); BLOOD UREA NITROGEN 31 MG/DL (7-18); CHLORIDE 102 MEQ/L (98-107); GLOMERULAR FILTRATION RATE 56 ML/MIN (>89); POTASSIUM 3.8 MEQ/L (3.5-5.1); SODIUM (NA) 136 MEQ/L (136-145)
[2017-01-09 16:20] LABS: ALKALINE PHOSPHATASE 111 U/L (45-117); ALT (GPT) 40 U/L (10-53); TOTAL BILIRUBIN ADULT 0.2 MG/DL (0.2-1.0)
[2017-01-09 16:27] LABS: CREATINE KINASE 37 U/L (26-192)
[2017-01-09] MEDS ORDERED: DEXAMETHASONE SOD PHOS 20 MG/5 ML VIAL IV PUSH ONE (18:15)
[2017-01-09] MEDS ORDERED: RESP: ALBUTEROL 2.5 MG/3 ML NEB (SCH) NEB ONE (18:15)
[2017-01-09] MEDS ORDERED: PROT40TA PO (18:21)
--- NOTE | 2017-01-09 18:21 | PD ---
HPI Chief Complaint: Abdominal Pain Time Seen by Provider: 17:46 Travel History International Travel<30 days: No Contact w/Intl Traveler<30days: No Traveled to known affect area: No History of Present Illness HPI 61-year-old female came to the emergency room with history of abdominal pain which is acute on chronic abdominal pain, vomiting while she was asleep and think she aspirated. This happened at 1 PM this afternoon. Patient was seen by the provider in triage and workup was initiated including CBC, complete metabolic profile, chest x-ray and abdominal x-ray. There were all within normal limits except for the abdominal x-ray which showed moderate amount of stool. Patient continues to clear her throat and says her throat feels very irritated. She saturating 100% on room air. She does appear little anxious. She is not drooling. She says she has history of pancreatitis and goes to [facility] to see the specialist there. Her liver function and lipase were within normal limits. She says this morning she was absolutely fine up until this happened. [facility] Past Medical History Narrative Medical List of her past medical, social, surgical and family history is reviewed from the nursing note. Hx Anticoagulant Therapy: No Autoimmune Disease: No Anxiety: Yes Depression: Yes Heart Rhythm Problems: No Cancer: No Cardiac Catheterization: No Cardiovascular Problems: Yes High Cholesterol: Yes Chemotherapy: No Chest Pain: No Congestive Heart Failure: No Cerebrovascular Accident: No Diabetes: Yes Patient Takes Glucophage: Yes (metformin ) Diminished Hearing: No Endocrine: No Gastrointestinal Disorders: Yes (IBS, FECAL INCONT.) Genitourinary: No Hepatitis: No Hiatal Hernia: No Hypertension: Yes Immune Disorder: No Medical other: No Musculoskeletal: Yes (ARTHRITIS, LUMBAR RADICULOPATHY NUMBNESS IN LEFT TOES) Neurologic: Yes Psychiatric: Yes Reproductive: No Respiratory: Yes (CHRONIC COUGH WITH POST NASAL DRIP) Thyroid Disease: No ?: Not Menopausal: Yes : 3 Para: 3 Miscarriage: 0 : 0 Past Surgical History Abdominal Surgery: Yes (ELKE.,GASTRIC BYPASS,BOWEL REPAIR WITH MESH,) AICD: No Appendectomy: Yes Arteriovenous Shunt: No Cardiac Surgery: No Cholecystectomy: Yes Coronary Artery Bypass Graft: No Ear Surgery: No Endocrine Surgery: No Eye Surgery: No Genitourinary Surgery: Yes (RECTAL SPHINCTOPLASTY,) Gynecologic Surgery: Yes (HYSTERECTOMY,) Hysterectomy: Yes Insulin Pump: No Joint Replacement: No Neurologic Surgery: No Oral Surgery: Yes (TONSILLECTOMY) Pacemaker: No Thoracic Surgery: No Other Surgery: Yes (LEFT ROTATOR CUFF REPAIR) Family History Family Myocardial Infarction: Yes Social History Alcohol Use: No Tobacco Use: No Substance Use: No Allergies-Medications (Allergen,Severity, Reaction): Coded Allergies: Codeine (Verified Allergy, Severe, SHARP, INTENSE ABDOMINAL PAIN, 01/09/17) Latex (Verified Allergy, Severe, ANAPHYLAXIS, 01/09/17) Lortab (Verified Allergy, Severe, Itching, 01/09/17) Percodan (Verified Allergy, Severe, Itching, 01/09/17) Talwin (Verified Allergy, Severe, SHORTNESS OF BREATH, 01/09/17) Vicodin (Verified Allergy, Severe, Itching, 01/09/17) Uncoded Allergies: VIBERZI (Allergy, Severe, PAIN, 07/03/16) Comments List of her allergies reviewed from the nursing note. Reported Meds & Prescriptions Reported Meds & Active Scripts Active Miralax Powder (Polyethylene Glycol 3350 Powder) 17 Gm Powd 17 Gm PO DAILY Mix and dissolve one measuring cap-ful (17 grams) in water or juice. Protonix (Pantoprazole Sodium) 40 Mg Tab 40 Mg PO DAILY Metoprolol Tartrate 25 Mg Tab 25 Mg PO BID Nitroglycerin SL (Nitroglycerin) 0.4 Mg Subl 0.4 Mg SL DIRECTED PRN ONE TABLET UNDER THE TONGUE NEEDED FOR CHEST PAIN, MAY REPEAT EVERY FIVE MINUTES FOR A TOTAL OF 3 DOSES OR CALL 911 IF NO RELIEF Reported Gabapentin 600 Mg Tab 600 Mg PO TID Zoloft (Sertraline HCl) 100 Mg Tab 150 Mg PO DAILY Morphine IR (Morphine Sulfate) 15 Mg Tab 15 Mg PO TID PRN Lorazepam 1 Mg Tab 1 Mg PO DAILY PRN Crestor (Rosuvastatin Calcium) 20 Mg Tab 20 Mg PO HS Ferrous Sulfate 325 Mg Tab 325 Mg PO BID Cyanocobalamin Inj (Cyanocobalamin) 1,000 Mcg/Ml Inj 1,000 Mcg IM Q30D Drisdol (Ergocalciferol) 50,000 Unit Cap 50,000 Units PO WEEKLY ON WEDNESDAYS Calcium (Calcium Carbonate) 600 Mg Tab 600 Mg PO BID Multi Vitamin (Multiple Vitamin) 1 Tab Tab 1 Tab PO DAILY Probiotic (Lactobacillus Acidophilus) 1 Cap Cap 1 Cap PO DAILY Zofran Odt (Ondansetron Odt) 4 Mg Tab 4 Mg SL Q6HR PRN Metformin (Metformin HCl) 500 Mg Tab 500 Mg PO DAILY With a meal Questran (Cholestyramine) 4 Gm/Pkt Powd 4 Gm PO BID 1 packet contains 4gm of cholestyramine. Lisinopril-Hctz 20-12.5 Mg Tab 1 Tab PO DAILY Nuvigil (Armodafinil) 250 Mg Tab 250 Mg PO DAILY Adderall Xr 24 HR (Amphetamine/Dextroamphetamine) 20 Mg Cap 20 Mg PO DAILY Once daily in the morning. Narrative Medication List of her home medications reviewed from the nursing note. Review of Systems Except as stated in HPI: all other systems reviewed are Neg Physical Exam Narrative GENERAL: Awake, alert, anxious, trying to clear her throat SKIN: Warm and dry. HEAD: Atraumatic. Normocephalic. EYES: Pupils equal and round. No scleral icterus. No injection or drainage. ENT: No nasal bleeding or discharge. Mucous membranes pink and moist. NECK: Trachea midline. No JVD. CARDIOVASCULAR: Regular rate and rhythm. No murmur appreciated. RESPIRATORY: No accessory muscle use. Clear to auscultation. Breath sounds equal bilaterally. GASTROINTESTINAL: Abdomen soft, non-tender, nondistended. Hepatic and splenic margins not palpable. MUSCULOSKELETAL: No obvious deformities. No clubbing. No cyanosis. No edema. NEUROLOGICAL: Awake and alert. No obvious cranial nerve deficits. Motor grossly within normal limits. Normal speech. PSYCHIATRIC: Appropriate mood and affect; insight and judgment normal. Data Data Last Documented VS Vital Signs Date Time Temp Pulse Resp B/P Pulse Ox O2 Delivery O2 Flow Rate FiO2 01/09/17 19:46 72 16 130/93 95 01/09/17 14:16 98.2 Room Air Orders Complete Blood Count With Diff (01/09/17 14:58) Comprehensive Metabolic Panel (01/09/17 14:58) Lipase (01/09/17 14:58) Prothrombin Time / Inr (Pt) (01/09/17 14:58) Act Partial Throm Time (Ptt) (01/09/17 14:58) Urinalysis - C+S If Indicated (01/09/17 14:58) Abdomen, Flat & Upright (01/09/17 ) Chest, Single Ap (01/09/17 ) Ckmb (Isoenzyme) Profile (01/09/17 14:58) Troponin I (01/09/17 14:58) Urine Culture (01/09/17 15:25) Albuterol Neb (Albuterol Neb) (01/09/17 18:15) Dexamethasone Inj (Decadron Inj) (01/09/17 18:15) Labs Laboratory Tests Test 01/09/17 01/09/17 15:15 15:25 White Blood Count 10.8 TH/MM3 Red Blood Count 3.64 MIL/MM3 Hemoglobin 10.3 GM/DL Hematocrit 32.0 % Mean Corpuscular Volume 87.8 FL Mean Corpuscular Hemoglobin 28.2 PG Mean Corpuscular Hemoglobin 32.2 % Concent Red Cell Distribution Width 13.8 % Platelet Count 222 TH/MM3 Mean Platelet Volume 7.2 FL Neutrophils (%) (Auto) 65.7 % Lymphocytes (%) (Auto) 21.9 % Monocytes (%) (Auto) 9.7 % Eosinophils (%) (Auto) 2.4 % Basophils (%) (Auto) 0.3 % Neutrophils # (Auto) 7.1 TH/MM3 Lymphocytes # (Auto) 2.4 TH/MM3 Monocytes # (Auto) 1.0 TH/MM3 Eosinophils # (Auto) 0.3 TH/MM3 Basophils # (Auto) 0.0 TH/MM3 CBC Comment DIFF FINAL Differential Comment Prothrombin Time 10.2 SEC Prothromb Time International 0.9 RATIO Ratio Activated Partial 23.4 SEC Thromboplast Time Sodium Level 136 MEQ/L Potassium Level 3.8 MEQ/L Chloride Level 102 MEQ/L Carbon Dioxide Level 25.4 MEQ/L Anion Gap 9 MEQ/L Blood Urea Nitrogen 31 MG/DL Creatinine 1.18 MG/DL Estimat Glomerular Filtration 56 ML/MIN Rate Random Glucose 52 MG/DL Calcium Level 8.6 MG/DL Total Bilirubin 0.2 MG/DL Aspartate Amino Transf 19 U/L (AST/SGOT) Alanine Aminotransferase 40 U/L (ALT/SGPT) Alkaline Phosphatase 111 U/L Total Creatine Kinase 37 U/L Troponin I LESS THAN 0.02 NG/ML Total Protein 6.7 GM/DL Albumin 3.0 GM/DL Lipase 151 U/L Urine Color LIGHT-YELLOW Urine Turbidity CLEAR Urine pH 5.0 Urine Specific [place] 1.012 Urine Protein NEG mg/dL Urine Glucose (UA) NEG mg/dL Urine Ketones NEG mg/dL Urine Occult Blood NEG Urine Nitrite NEG Urine Bilirubin NEG Urine Urobilinogen LESS THAN 2.0 MG/DL Urine Leukocyte Esterase LARGE Urine RBC 1 /hpf Urine WBC 23 /hpf Urine Squamous Epithelial 1 /hpf Cells Urine Transitional Epithelial 1 /hpf Cells Urine Bacteria OCC /hpf Urine Hyaline Casts 2 /lpf Urine Mucus FEW /lpf Microscopic Urinalysis Comment CULTURE INDICATED MDM Medical Decision Making Medical Screen Exam Complete: Yes Emergency Medical Condition: Yes Medical Record Reviewed: Yes Differential Diagnosis Irritation from the acid reflux, GERD Narrative Course 6:18 PM I will give her a dose of albuterol nebulizer and Decadron for the possible irritation from the acid reflux. I recommended that she should go to see her specialist and [facility] regarding her ongoing reflux issue. Patient understands. She'll be discharged home. Procedures EKG Prior to Arrival: No Diagnosis Primary Impression: Aspiration of vomitus Qualified Code: T17.910A - Aspiration of vomitus, initial encounter Additional Impressions: GERD (gastroesophageal reflux disease) Qualified Code: K21.9 - Gastroesophageal reflux disease, esophagitis presence not specified Constipation Qualified Code: K59.00 - Constipation, unspecified constipation type Referrals: Primary Care Physician 2 days Additional Instructions: Please call your GI specialist and mentioned to them about her ongoing issues with reflux. Please return to the ER if the condition worsens or any other new concerns. Food or liquid that has high acid content like citrus beverages, tomatoes, ketchup, strawberries etc. Follow-up with your primary care physician as well. Med/Other Pt SpecificInfo: Prescription(s) given Scripts Polyethylene Glycol 3350 Powder (Miralax Powder)17 Gm Powd17 Gm PO DAILY #1 BOTTLE Ref 0 Mix and dissolve one measuring cap-ful (17 grams) in water or juice. Prov:Dino Eaton MD 01/09/17 Pantoprazole (Protonix)40 Mg Tab40 Mg PO DAILY #30 TAB Ref 0 Prov:Dino Eaton MD 01/09/17 Disposition: 01 DISCHARGE HOME Condition: Stable Dino Eaton MD Jan 09, 2017 18:21
[2017-01-09] MEDS ORDERED: MIRA33504 PO (19:10)
[2017-01-09 19:46] VITALS: BP 130/93
== END 2017-01-09 19:49 | disposition home or self-care (01) ==
LOC: NEPC 14:15
DX: T17.918A Gastric contents in respiratory tract, part unspecified causing other injury, initial encounter (principal); K21.9 Gastro-esophageal reflux disease without esophagitis; K59.00 Constipation, unspecified; E78.00 Pure hypercholesterolemia, unspecified; I10 Essential (primary) hypertension; E11.9 Type 2 diabetes mellitus without complications; K58.9 Irritable bowel syndrome, unspecified; J45.909 Unspecified asthma, uncomplicated; R05 Cough
CPT/HCPCS: 71010; 74020; 80053; 81001; 82550; 83690; 84484; 85025; 85610; 85730; 87086; 94664; 96374; 99284; J1100; J7613

== ENCOUNTER 2017-01-20 15:40 | Inpatient (IN) | payer OTHER ==
[~2017-01-20] VITALS: Ht 165.1 cm; Wt 77.0 kg
[~2017-01-20 15:40] MED LIST changes: +MIRA33504 PO; +PROT40TA PO
[2017-01-20 15:43] VITALS: BP 102/50; PULSE 68; RESP 24; TEMP 98.5; O2SAT 100
[2017-01-20 15:57] VITALS: O2SAT 98
[2017-01-20] MEDS ORDERED: SODIUM CHLORID 0.9% 500 ML INJ 500 ML IV ONE (16:00)
[2017-01-20] MEDS ORDERED: SODIUM CHLORIDE 0.9% FLUSH 5 ML FLUSH IVF PRN (16:00)
--- NOTE | 2017-01-20 16:33 | RADRPT ---
EXAM DATE/TIME: 01/20/2017 16:06 [facility] COMPARISON: No previous studies available for comparison. INDICATIONS : Chest Pain, Short of Breath. MEDICAL HISTORY : Hypertension. Hypercholesterolemia. Asthma. Angina. Diabetes. SURGICAL HISTORY : Cholecystectomy. Appendectomy. Hysterectomy. Gastric bypass. Rectal sphinctoplasty. Cervical fusion. ENCOUNTER: Initial ACUITY: 1 day PAIN SCORE: 5/10 LOCATION: Bilateral chest FINDINGS: A single view of the chest demonstrates the lungs to be symmetrically aerated without evidence of mas s, infiltrate or effusion. The cardiomediastinal contours are unremarkable. Osseous structures are intact. CONCLUSION: No evidence of acute cardiopulmonary disease. Woody Sinha MD on January 20, 2017 at 16:32 Board Certified Radiologist. This report was verified electronically.
[2017-01-20] MEDS ORDERED: MORPHINE SULFATE 4 MG/ML INJ IV PUSH ONE (17:00)
[2017-01-20] MEDS ORDERED: ONDANSETRON HCL 4 MG/2 ML VIAL IV PUSH ONE (17:00)
[2017-01-20 17:04] LABS: BASOPHIL % 0.3 % (0.0-2.0); EOSINOPHIL # 0.2 TH/MM3 (0-0.4); HEMATOCRIT 28.2 % (35.0-46.0); HEMO FLAGS DIFF FINAL; LYMPH % 21.9 % (9.0-44.0); LYMPHOCYTE # 2.2 TH/MM3 (1.0-4.8); MEAN CELL VOLUME 87.4 FL (80.0-100.0); MEAN CORPUSCULAR HEMOGLOBIN 29.2 PG (27.0-34.0); MEAN CORPUSCULAR HGB CONC 33.4 % (32.0-36.0); MONO % 6.2 % (0.0-8.0); NEUT % 69.6 % (16.0-70.0); PLATELET COUNT 263 TH/MM3 (150-450); RED BLOOD COUNT 3.22 MIL/MM3 (4.00-5.30); RED CELL DISTRIBUTION WIDTH 13.8 % (11.6-17.2); WHITE BLOOD COUNT 10.1 TH/MM3 (4.0-11.0)
--- NOTE | 2017-01-20 17:25 | PD ---
HPI Chief Complaint: Chest Pain Time Seen by Provider: 15:52 Travel History International Travel<30 days: No Contact w/Intl Traveler<30days: No Traveled to known affect area: No History of Present Illness HPI Patient is a 61-year-old female with hx of htn, hyperlipedimia, DM who presents to emergency room with complaints of chest pain. Patient reports that she was out today [place] with [place]. Reports that she went to go sit down when all of a sudden she began to have chest pain. Patient reports that she began to have increased pain across her chest, reports that the pain traveled up to her neck into her right jaw. Patient reports that she took 2 sublingual nitroglycerin and then reports waking up next the next minute in a chair. Patient was told that she had a syncopal episode and unconscious for about 5 minutes. Patient reports that her chest pain felt like a pressure to her chest, reports that it felt as if something was sitting on her chest. She reports that the same thing happened 3 weeks ago and she was seen by Dr. Cordova, reports that she had a positive nuclear stress test which an anterior wall ischemia. Patient reports that she does have history of hypertension, diabetes and hyperlipidemia. Patient reports that she plan on seeing Dr. Newman in the office. Patient was given aspirin by EMS prior to arrival to emergency room. EMS reports that when the right on scene, patient was hypotensive with a blood pressure 40/37, after 200 mL to fluid, but pressure went up to 77/46. Patient is normotensive while in the emergency room here PFSH Past Medical History Hx Anticoagulant Therapy: No Autoimmune Disease: No Anxiety: Yes Depression: Yes Heart Rhythm Problems: No Cancer: No Cardiac Catheterization: No Cardiovascular Problems: Yes (EXERTION ANGINA ) High Cholesterol: Yes Chemotherapy: No Chest Pain: No Congestive Heart Failure: No Cerebrovascular Accident: No Diabetes: Yes Patient Takes Glucophage: No Diminished Hearing: No Endocrine: No Gastrointestinal Disorders: Yes (IBS, FECAL INCONT.) Genitourinary: No Hepatitis: No Hiatal Hernia: No Heparin Induced Thrombocytopen: No Hypertension: Yes Immune Disorder: No Implanted Vascular Access Dvce: No Medical other: No Musculoskeletal: Yes (ARTHRITIS, LUMBAR RADICULOPATHY NUMBNESS IN LEFT TOES) Neurologic: Yes Psychiatric: Yes Reproductive: No Respiratory: Yes (CHRONIC COUGH WITH POST NASAL DRIP) Thyroid Disease: No Menopausal: Yes : 3 Para: 3 Miscarriage: 0 : 0 Past Surgical History Abdominal Surgery: Yes (ELKE.,GASTRIC BYPASS,BOWEL REPAIR WITH MESH,) AICD: No Appendectomy: Yes Arteriovenous Shunt: No Cardiac Surgery: No Cholecystectomy: Yes Coronary Artery Bypass Graft: No Ear Surgery: No Endocrine Surgery: No Eye Surgery: No Genitourinary Surgery: Yes (RECTAL SPHINCTOPLASTY,) Gynecologic Surgery: Yes (HYSTERECTOMY,) Hysterectomy: Yes Insulin Pump: No Joint Replacement: No Neurologic Surgery: No Oral Surgery: Yes (TONSILLECTOMY) Pacemaker: No Thoracic Surgery: No Other Surgery: Yes (LEFT ROTATOR CUFF REPAIR) Family History Family Myocardial Infarction: Yes Social History Alcohol Use: No Tobacco Use: No Substance Use: No Allergies-Medications (Allergen,Severity, Reaction): Coded Allergies: Codeine (Verified Allergy, Severe, SHARP, INTENSE ABDOMINAL PAIN, 01/20/17) Latex (Verified Allergy, Severe, ANAPHYLAXIS, 01/20/17) Lortab (Verified Allergy, Severe, Itching, 01/20/17) Percodan (Verified Allergy, Severe, Itching, 01/20/17) Talwin (Verified Allergy, Severe, SHORTNESS OF BREATH, 01/20/17) Vicodin (Verified Allergy, Severe, Itching, 01/20/17) Uncoded Allergies: VIBERZI (Allergy, Severe, PAIN, 07/03/16) Reported Meds & Prescriptions Reported Meds & Active Scripts Active Miralax Powder (Polyethylene Glycol 3350 Powder) 17 Gm Powd 17 Gm PO DAILY Mix and dissolve one measuring cap-ful (17 grams) in water or juice. Protonix (Pantoprazole Sodium) 40 Mg Tab 40 Mg PO DAILY Metoprolol Tartrate 25 Mg Tab 25 Mg PO BID Nitroglycerin SL (Nitroglycerin) 0.4 Mg Subl 0.4 Mg SL DIRECTED PRN ONE TABLET UNDER THE TONGUE NEEDED FOR CHEST PAIN, MAY REPEAT EVERY FIVE MINUTES FOR A TOTAL OF 3 DOSES OR CALL 911 IF NO RELIEF Reported Gabapentin 600 Mg Tab 600 Mg PO TID Zoloft (Sertraline HCl) 100 Mg Tab 150 Mg PO DAILY Morphine IR (Morphine Sulfate) 15 Mg Tab 15 Mg PO TID PRN Lorazepam 1 Mg Tab 1 Mg PO DAILY PRN Crestor (Rosuvastatin Calcium) 20 Mg Tab 20 Mg PO HS Ferrous Sulfate 325 Mg Tab 325 Mg PO BID Cyanocobalamin Inj (Cyanocobalamin) 1,000 Mcg/Ml Inj 1,000 Mcg IM Q30D Drisdol (Ergocalciferol) 50,000 Unit Cap 50,000 Units PO WEEKLY ON WEDNESDAYS Calcium (Calcium Carbonate) 600 Mg Tab 600 Mg PO BID Multi Vitamin (Multiple Vitamin) 1 Tab Tab 1 Tab PO DAILY Probiotic (Lactobacillus Acidophilus) 1 Cap Cap 1 Cap PO DAILY Zofran Odt (Ondansetron Odt) 4 Mg Tab 4 Mg SL Q6HR PRN Metformin (Metformin HCl) 500 Mg Tab 500 Mg PO DAILY With a meal Questran (Cholestyramine) 4 Gm/Pkt Powd 4 Gm PO BID 1 packet contains 4gm of cholestyramine. Lisinopril-Hctz 20-12.5 Mg Tab 1 Tab PO DAILY Nuvigil (Armodafinil) 250 Mg Tab 250 Mg PO DAILY Adderall Xr 24 HR (Amphetamine/Dextroamphetamine) 20 Mg Cap 20 Mg PO DAILY Once daily in the morning. Review of Systems General / Constitutional: No: Fever Eyes: No: Visual changes HENT: No: Headaches Cardiovascular: Positive: Chest Pain or Discomfort, Diaphoresis Respiratory: Positive: Cough, No: Shortness of Breath Gastrointestinal: No: Abdominal Pain Genitourinary: No: Dysuria Musculoskeletal: No: Pain Skin: No Rash Neurologic: No: Weakness Psychiatric: No: Depression Endocrine: No: Polydipsia Hematologic/Lymphatic: No: Easy Bruising Physical Exam Narrative GENERAL: No acute distress, nontoxic SKIN: Warm and dry. HEAD: Atraumatic. Normocephalic. EYES: Pupils equal and round. No scleral icterus. No injection or drainage. ENT: No nasal bleeding or discharge. Mucous membranes pink and moist. NECK: Trachea midline. No JVD. CARDIOVASCULAR: Regular rate and rhythm. No murmur appreciated. RESPIRATORY: No accessory muscle use. Clear to auscultation. Breath sounds equal bilaterally. GASTROINTESTINAL: Abdomen soft, non-tender, nondistended. Hepatic and splenic margins not palpable. MUSCULOSKELETAL: No obvious deformities. No clubbing. No cyanosis. No edema. NEUROLOGICAL: Awake and alert. No obvious cranial nerve deficits. Motor grossly within normal limits. Normal speech. PSYCHIATRIC: Appropriate mood and affect; insight and judgment normal. Data Data Last Documented VS Vital Signs Date Time Temp Pulse Resp B/P Pulse Ox O2 Delivery O2 Flow Rate FiO2 01/20/17 15:57 98 Room Air 01/20/17 15:43 98.5 68 24 102/50 Orders B-Type Natriuretic Peptide (01/20/17 15:52) Ckmb (Isoenzyme) Profile (01/20/17 15:52) Complete Blood Count With Diff (01/20/17 15:52) Comprehensive Metabolic Panel (01/20/17 15:52) Magnesium (Mg) (01/20/17 15:52) Prothrombin Time / Inr (Pt) (01/20/17 15:52) Act Partial Throm Time (Ptt) (01/20/17 15:52) Troponin I (01/20/17 15:52) Chest, Single Ap (01/20/17 15:52) Ecg Monitoring (01/20/17 15:52) Iv Access Insert/Monitor (01/20/17 15:52) Oximetry (01/20/17 15:52) Sodium Chloride 0.9% Flush (Ns Flush) (01/20/17 16:00) Sodium Chlorid 0.9% 500 Ml Inj (Ns 500 M (01/20/17 16:00) Electrocardiogram (01/20/17 15:46) Ondansetron Inj (Zofran Inj) (01/20/17 17:00) Morphine Inj (Morphine Inj) (01/20/17 17:00) Consult Cardiology (01/20/17 ) (Hub Use Only)Inp Phy Cons/Ref (01/20/17 ) Admit Order (Ed Use Only) (01/20/17 18:27) Labs Laboratory Tests Test 01/20/17 16:30 White Blood Count 10.1 TH/MM3 Red Blood Count 3.22 MIL/MM3 Hemoglobin 9.4 GM/DL Hematocrit 28.2 % Mean Corpuscular Volume 87.4 FL Mean Corpuscular Hemoglobin 29.2 PG Mean Corpuscular Hemoglobin 33.4 % Concent Red Cell Distribution Width 13.8 % Platelet Count 263 TH/MM3 Mean Platelet Volume 7.4 FL Neutrophils (%) (Auto) 69.6 % Lymphocytes (%) (Auto) 21.9 % Monocytes (%) (Auto) 6.2 % Eosinophils (%) (Auto) 2.0 % Basophils (%) (Auto) 0.3 % Neutrophils # (Auto) 7.0 TH/MM3 Lymphocytes # (Auto) 2.2 TH/MM3 Monocytes # (Auto) 0.6 TH/MM3 Eosinophils # (Auto) 0.2 TH/MM3 Basophils # (Auto) 0.0 TH/MM3 CBC Comment DIFF FINAL Differential Comment Prothrombin Time 11.0 SEC Prothromb Time International 1.0 RATIO Ratio Activated Partial 24.0 SEC Thromboplast Time Sodium Level 141 MEQ/L Potassium Level 3.6 MEQ/L Chloride Level 105 MEQ/L Carbon Dioxide Level 24.3 MEQ/L Anion Gap 12 MEQ/L Blood Urea Nitrogen 22 MG/DL Creatinine 1.22 MG/DL Estimat Glomerular Filtration 54 ML/MIN Rate Random Glucose 87 MG/DL Calcium Level 8.4 MG/DL Magnesium Level 1.8 MG/DL Total Bilirubin 0.4 MG/DL Aspartate Amino Transf 26 U/L (AST/SGOT) Alanine Aminotransferase 51 U/L (ALT/SGPT) Alkaline Phosphatase 85 U/L Total Creatine Kinase 44 U/L Troponin I LESS THAN 0.02 NG/ML B-Type Natriuretic Peptide 24 PG/ML Total Protein 6.3 GM/DL Albumin 3.3 GM/DL MDM Medical Decision Making Medical Screen Exam Complete: Yes Emergency Medical Condition: Yes Interpretation(s) Vital Signs Date Time Temp Pulse Resp B/P Pulse Ox O2 Delivery O2 Flow Rate FiO2 01/20/17 15:57 98 Room Air 01/20/17 15:43 98.5 68 24 102/50 100 Differential Diagnosis ACS, arrhythmia, electrolyte abnormality, PE Narrative Course Patient is a 61-year-old female with history of hypertension, diabetes, hyperlipidemia, and to emergency room with chest pain and syncopal episode. Patient reports that she began to have chest pain prior to coming to emergency room, reports pain across her chest radiating into her right jaw and right shoulders. Reports that she felt shortness of breath and diaphoretic with her symptoms and reports chest pain felt like a "something sitting on my chest." Patient did take 2 similar nitros and reports that she had a syncopal episode sitting in a chair. Bystanders told her that she was unconscious for about 5 minutes. Patient was hypotensive upon EMS arrival on scene. Patient was given IV fluids, patient normaltensive upon arrival to the emergency room. EKG with no acute ST segment changes, she was placed on a front desk monitor, labs as well as X-ray chest ordered. Will continue monitoring on a front desk monitor. case reviewed with Dr. Etienne who accepts pt to service . reports that she has chest pain every single day (reports that she can have symptoms up to 3-4 times per day) for the past 2 months, reports that chest taking come on at rest as well as on exertion. Patient reports that she has that pressure across her whole chest which radiates to her jaw every time she has chest pain, reports that she does get diaphoretic and nauseous with her symptoms, Reports that she has resolutions with symptoms she takes Zofran or nitroglycerin tab and lays down. Reports that symptoms lasted about 30 minutes at a time. Call made to environmental science instructor consumer relations specialist to review case patient request [facility] consumer relations specialist Physician Communication Physician Communication case discussed with dr smith who accepts pt to service case with dr. milton - will admit for unstable angina - does not want heparin gtt started at this time Diagnosis Primary Impression: Chest pain Qualified Code: R07.9 - Chest pain, unspecified type Additional Impression: Unstable angina Admitting Information Admitting Physician Requests: Admit Tonie Ceja DO Jan 20, 2017 17:25
[2017-01-20 17:26] LABS: ALT (GPT) 51 U/L (10-53); ANION GAP 12 MEQ/L (5-15); AST (GOT) 26 U/L (15-37); BICARBONATE 24.3 MEQ/L (21.0-32.0); BLOOD UREA NITROGEN 22 MG/DL (7-18); CHLORIDE 105 MEQ/L (98-107); GLOMERULAR FILTRATION RATE 54 ML/MIN (>89); MAGNESIUM 1.8 MG/DL (1.5-2.5); POTASSIUM 3.6 MEQ/L (3.5-5.1); SODIUM (NA) 141 MEQ/L (136-145)
[2017-01-20 17:30] LABS: ALKALINE PHOSPHATASE 85 U/L (45-117); TOTAL BILIRUBIN ADULT 0.4 MG/DL (0.2-1.0)
[2017-01-20 17:53] LABS: CREATINE KINASE 44 U/L (26-192)
[2017-01-20 18:00] VITALS: BP 129/56; PULSE 60; RESP 18; O2SAT 100
--- NOTE | 2017-01-20 19:49 | HHI.HP ---
HPI Service [facility] Hospitalists Primary Care Physician Claudio Yee M.D. Admission Diagnosis cp Chief Complaint: cp Travel History International Travel<30 Days: No Contact w/Intl Traveler <30 Da: No Traveled to Known Affected Are: No History of Present Illness Pt is 61 yo with gastric bypass, hx pancreatitis, severe gerd, dm who presents with cp. Pt has hx pancreatitis and says in June was seen at [facility] for operative ercp to evaluate her pancreatitis. She reports lysis of adhesions and also sphinterotomy at that time. Over past 2 months pt has lost over 20 pounds, having a hard time eating food, severe nausea, and vomting of bile. pain into chest with pain/pressure to bilateral neck/ears. Severe hoarse and was even seen by ent who told her it was refux. she was in ED in Dec. and had lexiscan for cp. It was read as mild apical ischemia. her slater apprentice felt it was not high risk and her sx's were probably gerd. She was with her children today and her cp came back and she took 2 ntg. Then became lightheaded with visual change and passed out. We are told her bp was "40/30s" at the seen but responded to ivf. Pt says her sx's occur daily and she has been using the ntg with relief. She was recently in ED 01/09 for aspiration vomitus upon awakening. given ppi at that time. Pt has not recently seen GI. Review of Systems Other hoarse unable to eat loss of weight cp neck pain diaphoresis vomit of bile Past Family Social History Past Medical History lexiscan 12/28..apical ischemia reported siomara en y gastric bypass ckd 3 cholecystomy hysterectomy. operative ercp at [facility] Jun 2016 with lysis of adhesions and sphincterotomy. pancreatitis peripheral neuropathy dm htn severe gerd back pain ibs depression. left rotator cuff surgery rectal sphinteroplasty. Reported Medications Miralax Powder (Polyethylene Glycol 3350 Powder) 17 Gm Powd 17 Gm PO DAILY Mix and dissolve one measuring cap-ful (17 grams) in water or juice. Protonix (Pantoprazole Sodium) 40 Mg Tab 40 Mg PO DAILY Metoprolol Tartrate 25 Mg Tab 25 Mg PO BID...stopped taking due to low bp Nitroglycerin SL (Nitroglycerin) 0.4 Mg Subl 0.4 Mg SL DIRECTED PRN ONE TABLET UNDER THE TONGUE NEEDED FOR CHEST PAIN, MAY REPEAT EVERY FIVE MINUTES FOR A TOTAL OF 3 DOSES OR CALL 911 IF NO RELIEF Gabapentin 600 Mg Tab 600 Mg PO TID Zoloft (Sertraline HCl) 100 Mg Tab 150 Mg PO DAILY Morphine IR (Morphine Sulfate) 15 Mg Tab 15 Mg PO TID PRN Lorazepam 1 Mg Tab 1 Mg PO DAILY PRN Crestor (Rosuvastatin Calcium) 20 Mg Tab 20 Mg PO HS Ferrous Sulfate 325 Mg Tab 325 Mg PO BID Cyanocobalamin Inj (Cyanocobalamin) 1,000 Mcg/Ml Inj 1,000 Mcg IM Q30D Drisdol (Ergocalciferol) 50,000 Unit Cap 50,000 Units PO WEEKLY ON WEDNESDAYS Calcium (Calcium Carbonate) 600 Mg Tab 600 Mg PO BID Multi Vitamin (Multiple Vitamin) 1 Tab Tab 1 Tab PO DAILY Probiotic (Lactobacillus Acidophilus) 1 Cap Cap 1 Cap PO DAILY Zofran Odt (Ondansetron Odt) 4 Mg Tab 4 Mg SL Q6HR PRN Metformin (Metformin HCl) 500 Mg Tab 500 Mg PO DAILY With a meal Questran (Cholestyramine) 4 Gm/Pkt Powd 4 Gm PO BID 1 packet contains 4gm of cholestyramine. Lisinopril-Hctz 20-12.5 Mg Tab 1 Tab PO DAILY Nuvigil (Armodafinil) 250 Mg Tab 250 Mg PO DAILY Adderall Xr 24 HR (Amphetamine/Dextroamphetamine) 20 Mg Cap 20 Mg PO DAILY Once daily in the morning. Allergies: Coded Allergies: Codeine (Verified Allergy, Severe, SHARP, INTENSE ABDOMINAL PAIN, 01/20/17) Latex (Verified Allergy, Severe, ANAPHYLAXIS, 01/20/17) Lortab (Verified Allergy, Severe, Itching, 01/20/17) Percodan (Verified Allergy, Severe, Itching, 01/20/17) Talwin (Verified Allergy, Severe, SHORTNESS OF BREATH, 01/20/17) Vicodin (Verified Allergy, Severe, Itching, 01/20/17) Uncoded Allergies: VIBERZI (Allergy, Severe, PAIN, 07/03/16) Family History nc Social History no tob/etoh Physical Exam Vital Signs heart reg lung cta abd s/nt ext no edema Vital Signs Date Time Temp Pulse Resp B/P Pulse Ox O2 Delivery O2 Flow Rate FiO2 01/20/17 15:57 98 Room Air 01/20/17 15:43 98.5 68 24 102/50 100 Laboratory Laboratory Tests Test 01/20/17 16:30 White Blood Count 10.1 Red Blood Count 3.22 Hemoglobin 9.4 Hematocrit 28.2 Mean Corpuscular Volume 87.4 Mean Corpuscular Hemoglobin 29.2 Mean Corpuscular Hemoglobin 33.4 Concent Red Cell Distribution Width 13.8 Platelet Count 263 Mean Platelet Volume 7.4 Neutrophils (%) (Auto) 69.6 Lymphocytes (%) (Auto) 21.9 Monocytes (%) (Auto) 6.2 Eosinophils (%) (Auto) 2.0 Basophils (%) (Auto) 0.3 Neutrophils # (Auto) 7.0 Lymphocytes # (Auto) 2.2 Monocytes # (Auto) 0.6 Eosinophils # (Auto) 0.2 Basophils # (Auto) 0.0 CBC Comment DIFF FINAL Differential Comment Prothrombin Time 11.0 Prothromb Time International 1.0 Ratio Activated Partial 24.0 Thromboplast Time Sodium Level 141 Potassium Level 3.6 Chloride Level 105 Carbon Dioxide Level 24.3 Anion Gap 12 Blood Urea Nitrogen 22 Creatinine 1.22 Estimat Glomerular Filtration 54 Rate Random Glucose 87 Calcium Level 8.4 Magnesium Level 1.8 Total Bilirubin 0.4 Aspartate Amino Transf 26 (AST/SGOT) Alanine Aminotransferase 51 (ALT/SGPT) Alkaline Phosphatase 85 Total Creatine Kinase 44 Troponin I LESS THAN 0.02 B-Type Natriuretic Peptide 24 Total Protein 6.3 Albumin 3.3 Result Diagram: 01/20/17 1630 01/20/17 1630 Assessment and Plan Problem List: (1) Chest pain Status: Acute Plan: Pt is 61 yo with gastric bypass, hx pancreatitis, severe gerd, dm who presents with cp. Pt has hx pancreatitis and says in June was seen at [facility] for operative ercp to evaluate her pancreatitis. She reports lysis of adhesions and also sphinterotomy at that time. Over past 2 months pt has lost over 20 pounds, having a hard time eating food, severe nausea, and vomting of bile. pain into chest with pain/pressure to bilateral neck/ears. Severe hoarse and was even seen by ent who told her it was reflux. she was in ED in Dec. and had lexiscan for cp. It was read as mild apical ischemia. her slater apprentice felt it was not high risk and her sx's were probably gerd. She was with her children today and her cp came back and she took 2 ntg. Then became lightheaded with visual change and passed out. We are told her bp was "40/30s" at the seen but responded to ivf. Pt says her sx's occur daily and she has been using the ntg with relief. She was recently in ED 01/09 for aspiration vomitus upon awakening. given ppi at that time. Pt has not recently seen GI. Her sx's would appear to be mostly if not all related to severe gerd/bile acid reflux. could even have esophageal spasm with her description of relief with ntg. She did have lexiscan in December showing possible apical ischemia. That was felt by cardiology to be insignificant with her sx's. cardiology reconsult per ED to exclude cardiac component to her sx's consult GI to consider egd and evaluation of severe reflux start iv ppi dvt prophylaxis (2) GERD (gastroesophageal reflux disease) Status: Acute Plan: see above (3) Abnormal nuclear stress test Status: Acute Plan: see above (4) DM (diabetes mellitus) Status: Chronic Plan: ssi for now. hold oha (5) Hypertension Status: Chronic Physician Certification 2 Midnight Certification Type: Admission for Inpatient Services Order for Inpatient Services 2The services are ordered in accordance with Medicare regulations or non- Medicare payer requirements, as applicable. In the case of services not specified as inpatient-only, they are appropriately provided as inpatient services in accordance with the 2-midnight benchmark. Estimated LOS (days): 2 2 days is the estimated time the patient will need to remain in the hospital, assuming treatment plan goals are met and no additional complications. Post-Hospital Plan: Home Problem Qualifiers (1) Chest pain: Qualified Code: R07.9 - Chest pain, unspecified type Teto Monge MD Jan 20, 2017 19:49
[2017-01-20 20:00] VITALS: BP 116/57; PULSE 55; RESP 18; TEMP 98; O2SAT 99
[2017-01-20] MEDS ORDERED: SODIUM CHLORIDE 0.9% FLUSH 5 ML FLUSH IV PRN (20:00)
[2017-01-20] MEDS ORDERED: LORazepam 1 MG TAB PO PRN (20:00)
[2017-01-20] MEDS: SODIUM CHLORIDE 0.9% FLUSH 5 ML FLUSH IV SCH (20:54)
[2017-01-20 22:38] VITALS: PULSE 60
[2017-01-20] MEDS: FERROUS SULFATE 325 MG (65 MG ELEMENTAL IRON) TAB PO SCH (23:07)
[2017-01-20] MEDS: ATORVASTATIN 40 MG TAB PO SCH (23:07)
[2017-01-20] MEDS: PANTOPRAZOLE SODIUM 40 MG VIAL IV PUSH SCH (23:08)
[2017-01-21] VITALS: BP 90/54; PULSE 88; RESP 18; TEMP 97.7; O2SAT 98
[2017-01-21 00:39] LABS: CREATINE KINASE 56 U/L (26-192)
[2017-01-21 04:00] VITALS: BP 109/52; PULSE 65; RESP 16; TEMP 97.7; O2SAT 98
[2017-01-21] MEDS: CHOLESTYRAMINE 4 GM PACKET PO SCH ×2 (05:14→16:00)
[2017-01-21] MEDS: ONDANSETRON HCL 4 MG/2 ML VIAL IV PUSH PRN ×2 (06:10→19:14)
[2017-01-21 07:21] LABS: CREATINE KINASE 43 U/L (26-192)
[2017-01-21 08:00] VITALS: BP 102/46; PULSE 58; RESP 18; TEMP 98; O2SAT 99
[2017-01-21] MEDS: SODIUM CHLOR 0.9% 1000 ML INJ 1,000 ML IV SCH (08:02)
--- NOTE | 2017-01-21 08:02 | PD.CONS ---
HPI Service CV Consult Requested By Reason for Consult chest pain Primary Care Physician Claudio Yee M.D. History of Present Illness Here with gastric bypass, h/o pancreatitis, severe GERD, dm who presents with cp. Last year she was treated at [facility] for pancreatitis she was in [facility]. and had Lexiscan for chest pain. It was interpreted as no significant ischemia. She was at a birthday republic[employer] with her grandchildren and started having retrosternal chest pressure when she walked up incline. It was associated with nausea and pain behind her ears. She took one SL NTG without relief and then another 10 minutes later. Then she had a syncopal episode due to hypotension. She saw Dr. Cordova as an outpatient and metoprolol was stopped because it was lowering her blood pressure. It was thought that her chest pressure was related to her GERD. Now she is frightened by any activity due to exertional chest pain. (Gt Zuniga) Review of Systems Consitutional: DENIES: Fatigue, Fever, Chills, Weight gain, Weight loss Eyes: DENIES: Amaurosis Fugax, Change in vision HEENT: DENIES: Lightheadedness, Change in hearing Respiratory: DENIES: See HPI, Cough, Snoring, Shortness of breath, Wheezing, Sputum production Cardiovascular: COMPLAINS OF: See HPI, DENIES: Chest pain, Palpitations, Syncope, Tachycardia Gastrointestinal: DENIES: Nausea, Vomiting, Change in bowel habits, Reflux, Bloody stools, Melena Genitourinary: DENIES: Urinary incontinence, Difficulty voiding Integumentary: DENIES: Rash Neurologic: DENIES: Tingling or numbness, Memory problems, Poor Balance, Stroke symptoms Musculoskeletal: DENIES: Joint pain, Muscle pain, Limited range of motion, Back pain Psychiatric: DENIES: Anxiety, Depression, Sleep disturbances Hematologic: COMPLAINS OF: Bleeding tendencies, DENIES: Bruising tendencies Endocrine: DENIES: Weight gain, Weight loss, Thyroid disease (Gt Zuniga ) Past Family Social History Allergies: Coded Allergies: Codeine (Verified Allergy, Severe, SHARP, INTENSE ABDOMINAL PAIN, 01/20/17) Latex (Verified Allergy, Severe, ANAPHYLAXIS, 01/20/17) Lortab (Verified Allergy, Severe, Itching, 01/20/17) Percodan (Verified Allergy, Severe, Itching, 01/20/17) Talwin (Verified Allergy, Severe, SHORTNESS OF BREATH, 01/20/17) Vicodin (Verified Allergy, Severe, Itching, 01/20/17) Uncoded Allergies: VIBERZI (Allergy, Severe, PAIN, 07/03/16) Past Medical History see HPI siomara en y gastric bypass ckd 3 cholecystomy hysterectomy. operative ERCP at [facility] Jun 2016 with lysis of adhesions and sphincterotomy. peripheral neuropathy dm HTN back pain IBS depression. Past Surgical History left rotator cuff surgery rectal sphincteroplasty. Reported Medications Reported Meds & Active Scripts Active Miralax Powder (Polyethylene Glycol 3350 Powder) 17 Gm Powd 17 Gm PO DAILY Mix and dissolve one measuring cap-ful (17 grams) in water or juice. Protonix (Pantoprazole Sodium) 40 Mg Tab 40 Mg PO DAILY Metoprolol Tartrate 25 Mg Tab 25 Mg PO BID Nitroglycerin SL (Nitroglycerin) 0.4 Mg Subl 0.4 Mg SL DIRECTED PRN ONE TABLET UNDER THE TONGUE NEEDED FOR CHEST PAIN, MAY REPEAT EVERY FIVE MINUTES FOR A TOTAL OF 3 DOSES OR CALL 911 IF NO RELIEF Reported Gabapentin 600 Mg Tab 600 Mg PO TID Zoloft (Sertraline HCl) 100 Mg Tab 150 Mg PO DAILY Morphine IR (Morphine Sulfate) 15 Mg Tab 15 Mg PO TID PRN Lorazepam 1 Mg Tab 1 Mg PO DAILY PRN Crestor (Rosuvastatin Calcium) 20 Mg Tab 20 Mg PO HS Ferrous Sulfate 325 Mg Tab 325 Mg PO BID Cyanocobalamin Inj (Cyanocobalamin) 1,000 Mcg/Ml Inj 1,000 Mcg IM Q30D Drisdol (Ergocalciferol) 50,000 Unit Cap 50,000 Units PO WEEKLY ON WEDNESDAYS Calcium (Calcium Carbonate) 600 Mg Tab 600 Mg PO BID Multi Vitamin (Multiple Vitamin) 1 Tab Tab 1 Tab PO DAILY Probiotic (Lactobacillus Acidophilus) 1 Cap Cap 1 Cap PO DAILY Zofran Odt (Ondansetron Odt) 4 Mg Tab 4 Mg SL Q6HR PRN Metformin (Metformin HCl) 500 Mg Tab 500 Mg PO DAILY With a meal Questran (Cholestyramine) 4 Gm/Pkt Powd 4 Gm PO BID 1 packet contains 4gm of cholestyramine. Lisinopril-Hctz 20-12.5 Mg Tab 1 Tab PO DAILY Nuvigil (Armodafinil) 250 Mg Tab 250 Mg PO DAILY Adderall Xr 24 HR (Amphetamine/Dextroamphetamine) 20 Mg Cap 20 Mg PO DAILY Once daily in the morning. Active Ordered Medications Current Medications Medications (Trade) Dose Ordered Sig/Nyla Route Start Time Stop Time Status Last Admin (Protonix Inj) 40 mg Q12H IV PUSH 01/20/17 21:00 01/20/17 23:08 (Adderall Xr) 20 mg DAILY PO 01/21/17 09:00 (Questran 4 Gm Pkt) 4 gm BIDAC PO 01/21/17 07:00 01/21/17 05:14 (Ferrous Sulfate) 325 mg BID PO 01/20/17 21:00 01/20/17 23:07 (Neurontin) 600 mg TID PO 01/21/17 09:00 (Lactinex) 1 tab DAILY PO 01/21/17 09:00 (Ativan) 1 mg DAILY PRN PO 01/20/17 20:00 (Msir) 15 mg TID PRN PO 01/20/17 20:00 (Theragran) 1 tab DAILY PO 01/21/17 09:00 (Miralax) 17 gm DAILY PO 01/21/17 09:00 (Zoloft) 150 mg DAILY PO 01/21/17 09:00 Patient Own Medication PT OWN MED: (Armodafinil (Nuvig... DAILY PO 01/21/17 09:00 Future Hold (Prinivil) 20 mg DAILY PO 01/21/17 09:00 (Lipitor) 40 mg HS PO 01/20/17 21:00 01/20/17 23:07 (NS Flush) 2 ml BID IV 01/20/17 21:00 01/20/17 20:54 (NS Flush) 2 ml UNSCH PRN IV 01/20/17 20:00 (Microzide) 12.5 mg DAILY PO 01/21/17 09:00 (Zofran Inj) 4 mg Q4H PRN IV PUSH 01/20/17 20:30 01/21/17 06:10 Family History mother CAD Social History denies smoking, alcohol or substance abuse (Gt Zuniga) Physical Exam Vital Signs Vital Signs Date Time Temp Pulse Resp B/P Pulse Ox O2 Delivery O2 Flow Rate FiO2 01/21/17 04:00 97.7 65 16 109/52 98 01/21/17 00:00 97.7 88 18 90/54 98 01/20/17 22:38 60 01/20/17 22:30 Room Air 01/20/17 20:00 98.0 55 18 116/57 99 01/20/17 18:00 60 18 129/56 100 01/20/17 15:57 98 Room Air 01/20/17 15:43 98.5 68 24 102/50 100 Physical Exam GENERAL: Well-nourished, well-developed patient in no apparent distress. NECK: No JVD. No carotid bruit. CARDIOVASCULAR: Regular rate and rhythm. S1/S2 no murmur, rub, or gallop. RESPIRATORY: No accessory muscle use. Clear to auscultation. Breath sounds equal bilaterally. GASTROINTESTINAL: Abdomen soft, non-tender, nondistended. MUSCULOSKELETAL: Extremities without clubbing, cyanosis, or edema. Laboratory Laboratory Tests Test 01/20/17 01/20/17 01/21/17 16:30 23:58 06:30 White Blood Count 10.1 Red Blood Count 3.22 Hemoglobin 9.4 Hematocrit 28.2 Mean Corpuscular Volume 87.4 Mean Corpuscular Hemoglobin 29.2 Mean Corpuscular Hemoglobin 33.4 Concent Red Cell Distribution Width 13.8 Platelet Count 263 Mean Platelet Volume 7.4 Neutrophils (%) (Auto) 69.6 Lymphocytes (%) (Auto) 21.9 Monocytes (%) (Auto) 6.2 Eosinophils (%) (Auto) 2.0 Basophils (%) (Auto) 0.3 Neutrophils # (Auto) 7.0 Lymphocytes # (Auto) 2.2 Monocytes # (Auto) 0.6 Eosinophils # (Auto) 0.2 Basophils # (Auto) 0.0 CBC Comment DIFF FINAL Differential Comment Prothrombin Time 11.0 Prothromb Time International 1.0 Ratio Activated Partial 24.0 Thromboplast Time Sodium Level 141 Potassium Level 3.6 Chloride Level 105 Carbon Dioxide Level 24.3 Anion Gap 12 Blood Urea Nitrogen 22 Creatinine 1.22 Estimat Glomerular Filtration 54 Rate Random Glucose 87 Calcium Level 8.4 Magnesium Level 1.8 Total Bilirubin 0.4 Aspartate Amino Transf 26 (AST/SGOT) Alanine Aminotransferase 51 (ALT/SGPT) Alkaline Phosphatase 85 Total Creatine Kinase 44 56 43 Troponin I LESS THAN 0.02 LESS THAN 0.02 LESS THAN 0.02 B-Type Natriuretic Peptide 24 Total Protein 6.3 Albumin 3.3 (Gt Zuniga) Result Diagram: 01/20/17 1630 01/20/17 1630 Assessment and Plan Problem List: (1) Chest pain (2) Hypertension (3) Hyperlipidemia Assessment and Plan Her chest pain is concerning for angina and for this reason we will proceed with coronary angiogram For her renal insufficiency we will hydrate with normal saline 1 litre at 150 cc /hr Further recommendation will depend upon the outcome of the angiogram HTN - now she actually is hypotensive hyperlipidemia - check labs Anemia and low albumin and total protein likely due to malnutrition related to gastric bypass (Gt Zuniga) Assessment and Plan recurrent anginal symptoms despite optimal medical therapy plan for [facility] today NPO after breakfast (Alex Dobbins MD) Problem Qualifiers (1) Chest pain: Qualified Code: R07.9 - Chest pain, unspecified type Gt Zuniga Jan 21, 2017 08:02 Alex Dobbins MD Jan 21, 2017 08:20
[2017-01-21] MEDS ORDERED: MIDAZOLAM HCL 2 MG/2 ML VIAL IV SCH (08:15)
[2017-01-21] MEDS ORDERED: ASPIRIN 325 MG TAB PO SCH (08:15)
[2017-01-21 08:38] LABS: HDL CHOLESTEROL 72.5 MG/DL (40.0-60.0)
[2017-01-21] MEDS ORDERED: ARMODAFINIL 250 MG PO SCH (09:00)
[2017-01-21] MEDS ORDERED: LISINOPRIL 20 MG TAB PO SCH (09:00)
[2017-01-21] MEDS ORDERED: HYDROCHLOROTHIAZIDE 12.5 MG CAP PO SCH (09:00)
[2017-01-21] MEDS: GABAPENTIN 300 MG CAP PO SCH ×3 (09:33→18:46)
[2017-01-21] MEDS: LACTOBACILLUS ACIDOPHILUS TAB PO SCH (09:33)
[2017-01-21] MEDS: LISINOPRIL 5 MG TAB PO SCH (09:33)
[2017-01-21] MEDS: SERTRALINE HCL 50 MG TAB PO SCH (09:34)
[2017-01-21] MEDS: PANTOPRAZOLE SODIUM 40 MG VIAL IV PUSH SCH ×2 (09:34→20:53)
[2017-01-21] MEDS: MULTIVITAMIN TAB PO SCH (09:34)
[2017-01-21] MEDS: DEXTROAMPHETAMINE/AMPHETAMINE XR 20 MG CAP PO SCH (09:34)
[2017-01-21] MEDS: FERROUS SULFATE 325 MG (65 MG ELEMENTAL IRON) TAB PO SCH ×2 (09:34→20:52)
[2017-01-21] MEDS: POLYETHYLENE GLYCOL 17 GM PKG PO SCH (09:35)
[2017-01-21] MEDS: SODIUM CHLORIDE 0.9% FLUSH 5 ML FLUSH IV SCH ×2 (09:35→20:53)
--- NOTE | 2017-01-21 11:46 | PD.CONS ---
HPI History of Present Illness This is a 61 year old female who presented to the emergency department with complaints of chest pressure and severe reflux. She reports over the past one month reflux has been severe and she often develops hiccups.She has lost about 40 pounds in 6 months since she had pancreatitis in May 2016. She has developed hoarseness, was seen by ENT told she had reflux with the acid irritating the vocal cords she was advised to take Zantac. She did have an episode a few weeks ago where she aspirated bile then came to the ED, given PPI. Does not have any appetite when she eats becomes nauseated and feels like she wants to vomits, tender on exam in mid epigastric area. Labs show low protein and albumin levels. She was seen in [facility] in June for an ERCP and sphincterotomy and repair of lysis of adhesions following the episode of pancreatitis. She has PMH of a gastric bypass done in 1999 and then a revision in 2001 because she was loosing too much weight, and IBS. Last colonoscopy was in 2015 and was normal, last EGD was 2 years ago and was normal. For the chest pain, she is scheduled for a cardiac cath today. (Samia Shannon) PFSH Past Medical History CKD 3 DM Peripheral neuropathy GERD Pancreatitis HTN IBS Depression Back pain Past Surgical History George en y gastric bypass Cholecystectomy hysterectomy ERCP with Spinchterotomy at [facility] Left rotator cuff repair Rectal Spinchterotomy (Samia Shannon) Coded Allergies: Codeine (Verified Allergy, Severe, SHARP, INTENSE ABDOMINAL PAIN, 01/20/17) Latex (Verified Allergy, Severe, ANAPHYLAXIS, 01/20/17) Lortab (Verified Allergy, Severe, Itching, 01/20/17) Percodan (Verified Allergy, Severe, Itching, 01/20/17) Talwin (Verified Allergy, Severe, SHORTNESS OF BREATH, 01/20/17) Vicodin (Verified Allergy, Severe, Itching, 01/20/17) Uncoded Allergies: VIBERZI (Allergy, Severe, PAIN, 07/03/16) Medications Reported Meds & Active Scripts Active Miralax Powder (Polyethylene Glycol 3350 Powder) 17 Gm Powd 17 Gm PO DAILY Mix and dissolve one measuring cap-ful (17 grams) in water or juice. Protonix (Pantoprazole Sodium) 40 Mg Tab 40 Mg PO DAILY Metoprolol Tartrate 25 Mg Tab 25 Mg PO BID Nitroglycerin SL (Nitroglycerin) 0.4 Mg Subl 0.4 Mg SL DIRECTED PRN ONE TABLET UNDER THE TONGUE NEEDED FOR CHEST PAIN, MAY REPEAT EVERY FIVE MINUTES FOR A TOTAL OF 3 DOSES OR CALL 911 IF NO RELIEF Reported Gabapentin 600 Mg Tab 600 Mg PO TID Zoloft (Sertraline HCl) 100 Mg Tab 150 Mg PO DAILY Morphine IR (Morphine Sulfate) 15 Mg Tab 15 Mg PO TID PRN Lorazepam 1 Mg Tab 1 Mg PO DAILY PRN Crestor (Rosuvastatin Calcium) 20 Mg Tab 20 Mg PO HS Ferrous Sulfate 325 Mg Tab 325 Mg PO BID Cyanocobalamin Inj (Cyanocobalamin) 1,000 Mcg/Ml Inj 1,000 Mcg IM Q30D Drisdol (Ergocalciferol) 50,000 Unit Cap 50,000 Units PO WEEKLY ON WEDNESDAYS Calcium (Calcium Carbonate) 600 Mg Tab 600 Mg PO BID Multi Vitamin (Multiple Vitamin) 1 Tab Tab 1 Tab PO DAILY Probiotic (Lactobacillus Acidophilus) 1 Cap Cap 1 Cap PO DAILY Zofran Odt (Ondansetron Odt) 4 Mg Tab 4 Mg SL Q6HR PRN Metformin (Metformin HCl) 500 Mg Tab 500 Mg PO DAILY With a meal Questran (Cholestyramine) 4 Gm/Pkt Powd 4 Gm PO BID 1 packet contains 4gm of cholestyramine. Lisinopril-Hctz 20-12.5 Mg Tab 1 Tab PO DAILY Nuvigil (Armodafinil) 250 Mg Tab 250 Mg PO DAILY Adderall Xr 24 HR (Amphetamine/Dextroamphetamine) 20 Mg Cap 20 Mg PO DAILY Once daily in the morning. 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) Review of Systems Gastrointestinal: COMPLAINS OF: Abdominal pain, Nausea (Samia Shannon) GI Exam Vitals I&O Vital Signs Date Time Temp Pulse Resp B/P Pulse Ox O2 Delivery O2 Flow Rate FiO2 01/21/17 08:00 58 01/21/17 08:00 98.0 58 18 102/46 99 01/21/17 04:00 97.7 65 16 109/52 98 01/21/17 00:00 97.7 88 18 90/54 98 01/20/17 22:38 60 01/20/17 22:30 Room Air 01/20/17 20:00 98.0 55 18 116/57 99 01/20/17 18:00 60 18 129/56 100 01/20/17 15:57 98 Room Air 01/20/17 15:43 98.5 68 24 102/50 100 Laboratory Test 01/20/17 01/20/17 01/21/17 16:30 23:58 06:30 White Blood Count 10.1 TH/MM3 Red Blood Count 3.22 MIL/MM3 Hemoglobin 9.4 GM/DL Hematocrit 28.2 % Mean Corpuscular Volume 87.4 FL Mean Corpuscular Hemoglobin 29.2 PG Mean Corpuscular Hemoglobin 33.4 % Concent Red Cell Distribution Width 13.8 % Platelet Count 263 TH/MM3 Mean Platelet Volume 7.4 FL Neutrophils (%) (Auto) 69.6 % Lymphocytes (%) (Auto) 21.9 % Monocytes (%) (Auto) 6.2 % Eosinophils (%) (Auto) 2.0 % Basophils (%) (Auto) 0.3 % Neutrophils # (Auto) 7.0 TH/MM3 Lymphocytes # (Auto) 2.2 TH/MM3 Monocytes # (Auto) 0.6 TH/MM3 Eosinophils # (Auto) 0.2 TH/MM3 Basophils # (Auto) 0.0 TH/MM3 CBC Comment DIFF FINAL Differential Comment Prothrombin Time 11.0 SEC Prothromb Time International 1.0 RATIO Ratio Activated Partial 24.0 SEC Thromboplast Time Sodium Level 141 MEQ/L Potassium Level 3.6 MEQ/L Chloride Level 105 MEQ/L Carbon Dioxide Level 24.3 MEQ/L Anion Gap 12 MEQ/L Blood Urea Nitrogen 22 MG/DL Creatinine 1.22 MG/DL Estimat Glomerular Filtration 54 ML/MIN Rate Random Glucose 87 MG/DL Calcium Level 8.4 MG/DL Magnesium Level 1.8 MG/DL Total Bilirubin 0.4 MG/DL Aspartate Amino Transf 26 U/L (AST/SGOT) Alanine Aminotransferase 51 U/L (ALT/SGPT) Alkaline Phosphatase 85 U/L Total Creatine Kinase 44 U/L 56 U/L 43 U/L Troponin I LESS THAN 0.02 LESS THAN 0.02 LESS THAN 0.02 NG/ML NG/ML NG/ML B-Type Natriuretic Peptide 24 PG/ML Total Protein 6.3 GM/DL Albumin 3.3 GM/DL Triglycerides Level 71 MG/DL Cholesterol Level 174 MG/DL LDL Cholesterol 87 MG/DL HDL Cholesterol 72.5 MG/DL Cholesterol/HDL Ratio 2.40 RATIO Physical Examination HEENT: Pupils round and reactive to light; normocephalic; atraumatic; no jaundice. Throat is clear. NECK: Neck is supple, no JVD, no lymphadenopathy. CHEST: Chest is clear to auscultation and percussion. CARDIAC: Regular rate and rhythm with no murmur gallop or rubs. ABDOMEN: Soft, nondistended,tender epigastric area; no hepatosplenomegaly; bowel sounds are present in all four quadrants. EXTREMITIES: No clubbing, cyanosis, or edema. SKIN: Normal; no rash; no jaundice. LONG TERM CARE PHARMACIST: No focal deficits; alert and oriented times three. (Samia Shannon) Assessment and Plan Assessment: (1) GERD (gastroesophageal reflux disease) (2) Epigastric abdominal pain (3) Nausea (4) Weight loss (5) Anemia (6) Hx of acute pancreatitis Plan: Plan This is a 61 year old female with a Hx of a gastric bypass in 1999 with severe reflux, Anemia nausea, weight loss 40 pounds in 6 months, lack of appetite, anemia, hoarseness, Hx of pancreatitis with recent ERCP and Spinchterotomy, and IBS controlled.Presented also with chest pain seen by cardiology will have cardiac cath today. Once cleared by cardiology she will need an EGD and further recommendations as far as GI work up will follow. She did have a colonoscopy in 2016 normal per patient, last EGD 2 years ago was normal. Plan -Continue PPI -Antiemetics PRN -Clear liquid diet -Follow H&H, transfuse to keep Hgb >7.0 -IV fluids -Plan for EGD when cardiology work up is completed -Supportive care -Further recommendations will follow Patient was seen and examined by Dr. Young and myself this consult is written on his behalf. (Samia Shannon) Physician Comments Seen and examined with [employer] ACT INSTRUCTOR, admitted for CP. Has extensive history with [facility] in the past both locally and at [facility]. Cleared by cardiology for EGD tomorrow. Will follow, thank you (Pierce Young MD) Problem Qualifiers (1) GERD (gastroesophageal reflux disease): Qualified Code: K21.9 - Gastroesophageal reflux disease, esophagitis presence not specified (2) Anemia: Qualified Code: D64.9 - Anemia, unspecified type Samia Shannon Jan 21, 2017 11:46 Pierce Young MD Jan 21, 2017 18:36
[2017-01-21 12:00] VITALS: BP 136/63; PULSE 65; RESP 18; TEMP 99; O2SAT 94
--- NOTE | 2017-01-21 12:07 | HHI.PR ---
Subjective Remarks Pt reports that she has still had nausea today. No vomiting. No chest pain today Pt is planned for [facility] today. Objective Vitals Vital Signs Date Time Temp Pulse Resp B/P Pulse Ox O2 Delivery O2 Flow Rate FiO2 01/21/17 08:00 58 01/21/17 08:00 98.0 58 18 102/46 99 01/21/17 04:00 97.7 65 16 109/52 98 01/21/17 00:00 97.7 88 18 90/54 98 01/20/17 22:38 60 01/20/17 22:30 Room Air 01/20/17 20:00 98.0 55 18 116/57 99 01/20/17 18:00 60 18 129/56 100 01/20/17 15:57 98 Room Air 01/20/17 15:43 98.5 68 24 102/50 100 Result Diagram: 01/20/17 1630 01/20/17 1630 Other Results Laboratory Tests Test 01/20/17 01/20/17 01/21/17 16:30 23:58 06:30 White Blood Count 10.1 TH/MM3 Red Blood Count 3.22 MIL/MM3 Hemoglobin 9.4 GM/DL Hematocrit 28.2 % Mean Corpuscular Volume 87.4 FL Mean Corpuscular Hemoglobin 29.2 PG Mean Corpuscular Hemoglobin 33.4 % Concent Red Cell Distribution Width 13.8 % Platelet Count 263 TH/MM3 Mean Platelet Volume 7.4 FL Neutrophils (%) (Auto) 69.6 % Lymphocytes (%) (Auto) 21.9 % Monocytes (%) (Auto) 6.2 % Eosinophils (%) (Auto) 2.0 % Basophils (%) (Auto) 0.3 % Neutrophils # (Auto) 7.0 TH/MM3 Lymphocytes # (Auto) 2.2 TH/MM3 Monocytes # (Auto) 0.6 TH/MM3 Eosinophils # (Auto) 0.2 TH/MM3 Basophils # (Auto) 0.0 TH/MM3 CBC Comment DIFF FINAL Differential Comment Prothrombin Time 11.0 SEC Prothromb Time International 1.0 RATIO Ratio Activated Partial 24.0 SEC Thromboplast Time Sodium Level 141 MEQ/L Potassium Level 3.6 MEQ/L Chloride Level 105 MEQ/L Carbon Dioxide Level 24.3 MEQ/L Anion Gap 12 MEQ/L Blood Urea Nitrogen 22 MG/DL Creatinine 1.22 MG/DL Estimat Glomerular Filtration 54 ML/MIN Rate Random Glucose 87 MG/DL Calcium Level 8.4 MG/DL Magnesium Level 1.8 MG/DL Total Bilirubin 0.4 MG/DL Aspartate Amino Transf 26 U/L (AST/SGOT) Alanine Aminotransferase 51 U/L (ALT/SGPT) Alkaline Phosphatase 85 U/L Total Creatine Kinase 44 U/L 56 U/L 43 U/L Troponin I LESS THAN 0.02 LESS THAN 0.02 LESS THAN 0.02 NG/ML NG/ML NG/ML B-Type Natriuretic Peptide 24 PG/ML Total Protein 6.3 GM/DL Albumin 3.3 GM/DL Triglycerides Level 71 MG/DL Cholesterol Level 174 MG/DL LDL Cholesterol 87 MG/DL HDL Cholesterol 72.5 MG/DL Cholesterol/HDL Ratio 2.40 RATIO Objective Remarks General: NAD, AAOx3 Chest: CTA Cardiac: Regular Abd: +BS, soft nondistended Ext: No edema A/P Problem List: (1) Chest pain Status: Acute Plan: - Pt is 61 y/o with gastric bypass, hx pancreatitis, severe GERD, and DM who presents with CP. - Pt has hx pancreatitis and says in June was seen at [facility] for operative ERCP to evaluate her pancreatitis. She reports lysis of adhesions and also sphincterotomy at that time. - Over past 2 months pt has lost over 20 pounds, having a hard time eating food , severe nausea, vomiting of bile, and pain into chest with pain/pressure to bilateral neck/ears. She has also noted severe hoarseness and was seen by ENT who told her it was reflux. - She was in ED in Dec. and had Lexiscan for CP. It was read as mild apical ischemia. Her wood fuel pelletizer felt it was not high risk and her sx's were probably GERD. Pt has not recently seen GI. - She was recently in ED 01/09 for aspiration vomitus upon awakening and was given PPI at that time. - Pt presented back to the hospital today after her CP came back and she took 2 NTG. - Then became lightheaded with visual change and passed out. We are told her bp was "40/30s" at the scene but responded to IVF. Pt says these sx's occur daily and she has been using the NTG with relief. - It was felt initially that her sx's could mostly if not all be related to severe GERD/bile acid reflux or could even have esophageal spasm with her description of relief with NTG. - Cardiology has evaluated and is concerned for angina causing her symptoms. Pt is planned for [facility] today. - GI has evaluated the pt and plans for evaluation with EGD once cleared for procedure by cardiology. - Cont. PPI - DVT prophylaxis (2) GERD (gastroesophageal reflux disease) Status: Acute Plan: - See above (3) Abnormal nuclear stress test Status: Acute Plan: - See above (4) DM (diabetes mellitus) Status: Chronic Plan: - SSI for now. - Hold OHA (5) Hypertension Status: Chronic Assessment and Plan Patient examined. Assessment and plan formulated with Tonie Gongora PA-C. I agree with the above. Problem Qualifiers (1) Chest pain: Qualified Code: R07.9 - Chest pain, unspecified type (2) GERD (gastroesophageal reflux disease): Qualified Code: K21.9 - Gastroesophageal reflux disease, esophagitis presence not specified Tonie Gongora Jan 21, 2017 12:07 Olivier Garcia DO Jan 22, 2017 19:24
[2017-01-21] MEDS ORDERED: DIATRIZOATE MEGLUM/DIATRIZOATE SOD 9 ML CUP PO ONE (12:15)
[2017-01-21] MEDS ORDERED: HEPARIN-NS/PF INJ 500 ML ONE (14:34)
[2017-01-21] MEDS ORDERED: HEPARIN SODIUM - IV 10,000 UNITS/10 ML VIAL ONE (14:34)
[2017-01-21] MEDS ORDERED: NITROGLYCERIN INJ 5 ML ONE (14:35)
[2017-01-21] MEDS ORDERED: MIDAZOLAM HCL 2 MG/2 ML VIAL ONE (14:39)
--- NOTE | 2017-01-21 14:57 | EKG ---
Date Performed: 01/20/2017 Time Performed: 15:46:45 PTAGE: 61 years EKG: Sinus rhythm POSSIBLE RIGHT VENTRICULAR CONDUCTION DELAY BORDERLINE ECG Compared to prior tracing no significant change PREVIOUS TRACING : 12/28/2016 18.26 DOCTOR: Niharika Novoa Interpretating Date/Time 01/21/2017 14:51:15
[2017-01-21] MEDS ORDERED: IOHEXOL 350 MG/ML 100 ML BTL (for Cath Lab) OTHER ONE (15:00)
[2017-01-21] MEDS ORDERED: MISC INFORMATION XX ONE (15:15)
--- NOTE | 2017-01-21 15:34 | MA ---
cc: ALEX MEDLEY DATE: 01/21/2017 CERTIFIED TECHNICIAN SPECIALIST Alex Medley MD, [facility] PROCEDURE PERFORMED 1. Fluoroscopy with interpretation. 2. Left heart catheterization. 3. Left ventriculography. 4. Coronary angiography. METHOD Risks, benefits and alternatives were discussed with the patient. The patient understood and consented to the procedure. PROCEDURE The patient was brought into the catheterization lab and placed on the catheterization table. Right wrist was prepped and draped in usual sterile fashion. Right wrist was anesthetized with 2% lidocaine. The right radial artery was cannulated and a 6-Portuguese 7 cm sheath was placed without difficulty. LEFT HEART CATHETERIZATION A 6-Portuguese JR-5 catheter was advanced across the aortic valve without difficulty. Intraventricular hemodynamics measured at 108/10 mmHg, left ventricular end-diastolic pressure of 15 mmHg. 15 mmHg. LEFT VENTRICULOGRAPHY Left ventriculography was performed in the right anterior oblique using a 12 cc contrast injection with good opacification. Left ventricular ejection fraction visually estimated at 65-70% without regional wall motion abnormalities. No mitral regurgitation noted. CORONARY ANGIOGRAPHY 1. Left main coronary is angiographically normal. 2. Left anterior descending coronary is tortuous but angiographically normal, gives rise to a moderate sized diagonal branch, angiographically normal. 3. Left circumflex gives rise to high first obtuse marginal branch and a larger second obtuse marginal branch, both of which are angiographically normal. 4. Right coronary is a dominant vessel giving rise to a posterior descending branch. Right coronary is angiographically normal. CONCLUSION 1. Angiographically normal coronary arteries. 2. Normal left ventricular systolic function. PLAN The patient's symptoms are noncardiac. She is due for EGD tomorrow. Nothing by mouth after midnight. MD HILARIA Herrera/TERRELLL /2:07 PM /2:14 PM
[2017-01-21] MEDS ORDERED: BACITRACIN OINT 0.9 GM PKT TOP ONE (16:00)
[2017-01-21 17:40] VITALS: BP 115/56; PULSE 69; RESP 18; TEMP 98.8; O2SAT 98
[2017-01-21] MEDS: MORPHINE SULFATE 15 MG TAB PO PRN (19:14)
[2017-01-21 20:00] VITALS: BP 120/58; PULSE 79; RESP 18; TEMP 99.2; O2SAT 95
[2017-01-21] MEDS: ATORVASTATIN 40 MG TAB PO SCH (20:52)
[2017-01-21] MEDS ORDERED: IOHEXOL 350 MG/ML 10 ML VIAL (for RAD DIAG) IV ONE ×2 (23:40→23:41)
[2017-01-22] VITALS (10 sets, daily range): BP systolic 94–147; BP diastolic 51–57; PULSE 63–90; RESP 16–22; TEMP 97.9–98.9; O2SAT 96–99
--- NOTE | 2017-01-22 00:38 | RADRPT ---
EXAM DATE/TIME: 01/21/2017 23:32 This report includes an Addendum and supersedes previous reports for this exam. [facility] COMPARISON: CT ABDOMEN & PELVIS W CONTRAST, June 03, 2016, 16:13. INDICATIONS : Abdomen pain. IV CONTRAST: 95 cc Omnipaque 350 (iohexol) IV ORAL CONTRAST: Prescribed oral contrast ingested. RADIATION DOSE: 9.70 CTDIvol (mGy) MEDICAL HISTORY : Cardiovascular disease. Hypertension. Renal calculi. SURGICAL HISTORY : Appendectomy. Cholecystectomy.Hysterectomy.Gastric bypass ENCOUNTER: Initial ACUITY: 1 day PAIN SCALE: 5/10 LOCATION: Bilateral abdomen TECHNIQUE: Volumetric scanning of the abdomen and pelvis was performed. Using automated exposure control and ad justment of the mA and/or kV according to patient size, radiation dose was kept as low as reasonably achievable to obtain optimal diagnostic quality images. FINDINGS: LOWER LUNGS: The visualized lower lungs are clear. LIVER: Scattered subcentimeter hypodensities indicating cysts or biliary hamartomas are unchanged. Moderate severity diffuse intrahepatic biliary ductal dilatation. Diffuse extrahepatic biliary ductal dilatati on with the common duct measuring 12 mm in diameter. It measured 14 mm on the prior study. Liver othe rwise within normal limits. SPLEEN: Normal size without lesion. PANCREAS: Within normal limits. KIDNEYS: Left upper pole 7 mm calculus unchanged. No evidence of hydronephrosis. Kidneys otherwise within norm al limits. ADRENAL GLANDS: Within normal limits. VASCULAR: Within normal limits. BOWEL/MESENTERY: Postsurgical findings of the stomach and proximal small bowel. No evidence of bowel dilatation. No fr ee air or free fluid. Appendix not identified. ABDOMINAL WALL: Within normal limits. RETROPERITONEUM: There is no lymphadenopathy. BLADDER: Distended urinary bladder. REPRODUCTIVE: Within normal limits. INGUINAL: There is no lymphadenopathy or hernia. MUSCULOSKELETAL: Within normal limits for patient age. CONCLUSION: 1. No acute findings in the abdomen or pelvis. 2. Postsurgical findings of the stomach and proximal small bowel. 3. Chronic intrahepatic and extrahepatic biliary ductal dilatation. 4. Status post cholecystectomy. Adelso Ott MD on January 22, 2017 at 0:30 Board Certified Radiologist. This report was verified electronically. ADDENDUM: Conclusion #5 should read Left upper pole renal calculus unchanged Adelso Ott MD on January 22, 2017 at 1:54 Board Certified Radiologist. This report was verified electronically.
[2017-01-22] MEDS: CHOLESTYRAMINE 4 GM PACKET PO SCH ×2 (05:27→17:43)
[2017-01-22] MEDS ORDERED: PROPOFOL 200 MG/20 ML AMP IV ONE (09:17)
--- NOTE | 2017-01-22 09:29 | GIPROC ---
[facility] [address] [facility]. [facility], [address] EGD PROCEDURE REPORT EXAM DATE: 01/22/2017 PATIENT NAME: Dakotah Patel MR #: [id number] BIRTHDATE: 1955 ATTENDING: Pierce Young MD ORDER #: [id number] SERVICING MANAGER: Rehana Villatoro and Smooth Ferrell STATUS: inpatient INDICATIONS: The patient is a 61 yr old female here for an EGD due to epigastric abdominal pain PROCEDURE PERFORMED: EGD w/ biopsy MEDICATIONS: None and Per Anesthesia. TOPICAL ANESTHETIC: CONSENT: The patient understands the risks and benefits of the procedure and understands that these risks include, but are not limited to: sedation, allergic reaction, infection, perforation and/or bleeding. Alternative means of evaluation and treatment include, among others: physical exam, x-rays, and/or surgical intervention. The patient elects to proceed with this endoscopic procedure. medical equipment was checked for proper function. Hand hygiene and appropriate measures for infection prevention was taken. After the risks, benefits and alternatives of the procedure were thoroughly explained, Informed consent was verified, confirmed and timeout was successfully executed by the treatment team. The patient was anesthetized with topical anesthesia and the Pentax EG-[id number] endoscope was introduced through the mouth and advanced to the second portion of the duodenum. Retroflexed views revealed no abnormalities The gastroscope was then slowly withdrawn and removed. STOMACH: Gastric anastomosis with minimal gastritis, biopsied. ESOPHAGUS: The mucosa of the esophagus appeared normal. DUODENUM: The duodenal mucosa appeared normal. ADVERSE EVENTS: There were no complications. IMPRESSIONS: 1. Gastric anastomosis with minimal gastritis, biopsied 2. Retroflexed views revealed no abnormalities RECOMMENDATIONS: 1. Anti-reflux regimen 2. Continue PPI 3. Carafate 1 gm po tid ac PATIENT CONDITION: stable DISPOSITION: Inpatient REPEAT EXAM: Return 3 years EGD Pierce Young MD eSigned: Pierce Young MD 01/22/2017 9:28 AM cc: [id number]
[2017-01-22] MEDS: MULTIVITAMIN TAB PO SCH (10:19)
[2017-01-22] MEDS: FERROUS SULFATE 325 MG (65 MG ELEMENTAL IRON) TAB PO SCH ×2 (10:19→19:58)
[2017-01-22] MEDS: PANTOPRAZOLE SODIUM 40 MG VIAL IV PUSH SCH ×2 (10:19→19:58)
[2017-01-22] MEDS: POLYETHYLENE GLYCOL 17 GM PKG PO SCH (10:19)
[2017-01-22] MEDS: LISINOPRIL 5 MG TAB PO SCH (10:19)
[2017-01-22] MEDS: SERTRALINE HCL 50 MG TAB PO SCH (10:19)
[2017-01-22] MEDS: GABAPENTIN 300 MG CAP PO SCH ×3 (10:20→17:43)
[2017-01-22] MEDS: SODIUM CHLORIDE 0.9% FLUSH 5 ML FLUSH IV SCH ×2 (10:20→19:59)
[2017-01-22] MEDS: LACTOBACILLUS ACIDOPHILUS TAB PO SCH (10:20)
[2017-01-22] MEDS: DEXTROAMPHETAMINE/AMPHETAMINE XR 20 MG CAP PO SCH (10:23)
[2017-01-22] MEDS: MORPHINE SULFATE 15 MG TAB PO PRN ×2 (11:42→19:21)
[2017-01-22] MEDS: ONDANSETRON HCL 4 MG/2 ML VIAL IV PUSH PRN ×2 (11:42→17:46)
--- NOTE | 2017-01-22 14:38 | HHI.PR ---
Subjective Remarks Pt had EGD today which noted minimal gastritis Pt is rather upset and frustrated at the time of examination because she is still having the nausea and chest tightness related to food intake but also related to activity. She describes issues with regurgitation and had recently aspirated Objective Vitals Vital Signs Date Time Temp Pulse Resp B/P Pulse Ox O2 Delivery O2 Flow Rate FiO2 01/22/17 12:00 97.9 90 20 116/56 99 01/22/17 10:09 Room Air 01/22/17 09:40 57 20 110/60 97 01/22/17 09:23 97.7 60 18 122/60 98 01/22/17 08:49 98.9 63 18 147/52 97 01/22/17 08:00 98.9 63 18 147/52 97 01/22/17 04:00 98.5 66 18 99/51 97 01/22/17 03:12 85 01/22/17 00:00 98.5 79 18 98/54 98 01/21/17 21:00 Room Air 01/21/17 20:00 99.2 79 18 120/58 95 01/21/17 17:40 98.8 69 18 115/56 98 01/21/17 01/21/17 01/22/17 15:00 23:00 07:00 Intake Total 240 ml 0 ml Balance 240 ml 0 ml Intake Oral 240 ml 0 ml # Voids 2 1 # Bowel Movements 0 0 Result Diagram: 01/20/17 1630 01/20/17 1630 Other Results Laboratory Tests Test 01/20/17 01/20/17 01/21/17 16:30 23:58 06:30 White Blood Count 10.1 TH/MM3 Red Blood Count 3.22 MIL/MM3 Hemoglobin 9.4 GM/DL Hematocrit 28.2 % Mean Corpuscular Volume 87.4 FL Mean Corpuscular Hemoglobin 29.2 PG Mean Corpuscular Hemoglobin 33.4 % Concent Red Cell Distribution Width 13.8 % Platelet Count 263 TH/MM3 Mean Platelet Volume 7.4 FL Neutrophils (%) (Auto) 69.6 % Lymphocytes (%) (Auto) 21.9 % Monocytes (%) (Auto) 6.2 % Eosinophils (%) (Auto) 2.0 % Basophils (%) (Auto) 0.3 % Neutrophils # (Auto) 7.0 TH/MM3 Lymphocytes # (Auto) 2.2 TH/MM3 Monocytes # (Auto) 0.6 TH/MM3 Eosinophils # (Auto) 0.2 TH/MM3 Basophils # (Auto) 0.0 TH/MM3 CBC Comment DIFF FINAL Differential Comment Prothrombin Time 11.0 SEC Prothromb Time International 1.0 RATIO Ratio Activated Partial 24.0 SEC Thromboplast Time Sodium Level 141 MEQ/L Potassium Level 3.6 MEQ/L Chloride Level 105 MEQ/L Carbon Dioxide Level 24.3 MEQ/L Anion Gap 12 MEQ/L Blood Urea Nitrogen 22 MG/DL Creatinine 1.22 MG/DL Estimat Glomerular Filtration 54 ML/MIN Rate Random Glucose 87 MG/DL Calcium Level 8.4 MG/DL Magnesium Level 1.8 MG/DL Total Bilirubin 0.4 MG/DL Aspartate Amino Transf 26 U/L (AST/SGOT) Alanine Aminotransferase 51 U/L (ALT/SGPT) Alkaline Phosphatase 85 U/L Total Creatine Kinase 44 U/L 56 U/L 43 U/L Troponin I LESS THAN 0.02 LESS THAN 0.02 LESS THAN 0.02 NG/ML NG/ML NG/ML B-Type Natriuretic Peptide 24 PG/ML Total Protein 6.3 GM/DL Albumin 3.3 GM/DL Triglycerides Level 71 MG/DL Cholesterol Level 174 MG/DL LDL Cholesterol 87 MG/DL HDL Cholesterol 72.5 MG/DL Cholesterol/HDL Ratio 2.40 RATIO Lipase 156 U/L Imaging Last Impressions Chest X-Ray 01/20/17 1552 Signed Impressions: Service Date/Time: Friday, January 20, 2017 16:06 - CONCLUSION: No evidence of acute cardiopulmonary disease. Woody Sinha MD Objective Remarks General: NAD, AAOx3 Chest: CTA Cardiac: Regular Abd: +BS, soft nondistended Ext: No edema A/P Problem List: (1) Chest pain Status: Acute Plan: - Pt is 61 y/o with gastric bypass, hx pancreatitis, severe GERD, and DM who presents with CP. - Pt has hx pancreatitis and says in June was seen at [facility] for operative ERCP to evaluate her pancreatitis. She reports lysis of adhesions and also sphincterotomy at that time. - Over past 2 months pt has lost over 20 pounds, having a hard time eating food , severe nausea, vomiting of bile, and pain into chest with pain/pressure to bilateral neck/ears. She has also noted severe hoarseness and was seen by ENT who told her it was reflux. - She was in ED in Dec. and had Lexiscan for CP. It was read as mild apical ischemia. Her outpatient phlebotomist felt it was not high risk and her sx's were probably GERD. Pt has not recently seen GI. - She was recently in ED 01/09 for aspiration vomitus upon awakening and was given PPI at that time. - Pt presented back to the hospital today after her CP came back and she took 2 NTG. - Then became lightheaded with visual change and passed out. We are told her bp was "40/30s" at the scene but responded to IVF. Pt says these sx's occur daily and she has been using the NTG with relief. - It was felt initially that her sx's could mostly if not all be related to severe GERD/bile acid reflux or could even have esophageal spasm with her description of relief with NTG. - Cardiology has evaluated and pt underwent LHC on 01/21/17 --> Angiographically normal coronary arteries and normal left ventricular systolic function - GI has evaluated the pt underwent evaluation with EGD on 01/22/17 which noted gastric anastomosis with minimal gastritis, which was biopsied. - GI has recommended adding Carafate 1gram QIDACHS to the pts regimen. - Cont. PPI - Check Barium swallow for motility. Pt may have esophageal motility disorder - DVT prophylaxis (2) GERD (gastroesophageal reflux disease) Status: Acute Plan: - See above (3) Abnormal nuclear stress test Status: Acute Plan: - See above (4) DM (diabetes mellitus) Status: Chronic Plan: - SSI for now. - Hold OHA (5) Hypertension Status: Chronic Assessment and Plan Patient examined. Assessment and plan formulated with Tonie Gongora PA-C. I agree with the above. Problem Qualifiers (1) Chest pain: Qualified Code: R07.9 - Chest pain, unspecified type (2) GERD (gastroesophageal reflux disease): Qualified Code: K21.9 - Gastroesophageal reflux disease, esophagitis presence not specified Tonie Gongora Jan 22, 2017 14:38 Olivier Garcia DO Jan 22, 2017 19:24
--- NOTE | 2017-01-22 15:03 | EKG ---
Date Performed: 01/21/2017 Time Performed: 05:11:40 PTAGE: 61 years EKG: Sinus rhythm Normal ECG Compared to prior tracing no significant change PREVIOUS TRACING : 01/20/2017 22.25 DOCTOR: Michael Alberts Interpretating Date/Time 01/22/2017 15:00:40
--- NOTE | 2017-01-22 15:03 | EKG ---
Date Performed: 01/20/2017 Time Performed: 22:25:52 PTAGE: 61 years EKG: Sinus rhythm Normal ECG Compared to prior tracing no significant change PREVIOUS TRACING : 01/20/2017 15.46 DOCTOR: Michael Alberts Interpretating Date/Time 01/22/2017 15:00:28
--- NOTE | 2017-01-22 17:32 | RADRPT ---
EXAM DATE/TIME: 01/22/2017 16:43 [facility] COMPARISON: No previous studies available for comparison. INDICATIONS : Reflux. Assess esophageal motility. FLUORO TIME: 1.2 minutes IMAGE COUNT: 17 CONTRAST: 1. Liquid E-Z Paque Barium Sulfate (60% w/v, 41% w.w) MEDICAL HISTORY : Cardiovascular disease. Hypertension. Renal calculi SURGICAL HISTORY : Gastric bypass. ENCOUNTER: Initial ACUITY: 4 - 6 months PAIN SCORE: 5/10 LOCATION: Throat. FINDINGS: Air-contrast views of the hypopharynx demonstrate a normal mucosal surface without filling defect. R apid sequence images of the hypopharynx and cervical esophagus during the passage of barium demonstra te a normal swallowing function. No evidence of aspiration. Multiphasic examination of the esophagu s demonstrates no esophageal fold thickening, ulceration, or filling defect. The gastroesophageal ju nction is normal in configuration without evidence of hiatal hernia. There was mild gastroesophageal reflux seen with water siphon test. The patient is status post gastric bypass with small gastric remnant that quickly empties into the an astomosed small bowel. The gastric remnant appears to have thickened beckett which could shows some deg ree of gastritis. CONCLUSION: Mild gastroesophageal reflux without mucosal abnormality in the esophagus. Woody Reno MD on January 22, 2017 at 17:29 Board Certified Radiologist. This report was verified electronically.
[2017-01-22] MEDS: SUCRALFATE 1 GM TAB PO SCH ×2 (17:43→19:59)
[2017-01-22] MEDS: ATORVASTATIN 40 MG TAB PO SCH (19:59)
[2017-01-23] VITALS (8 sets, daily range): BP systolic 98–121; BP diastolic 53–65; PULSE 60–76; RESP 16–20; TEMP 97.7–98.6; O2SAT 96–100
[2017-01-23] MEDS: CHOLESTYRAMINE 4 GM PACKET PO SCH ×2 (04:32→16:49)
[2017-01-23] MEDS: MORPHINE SULFATE 15 MG TAB PO PRN ×2 (07:02→18:58)
[2017-01-23] MEDS: SUCRALFATE 1 GM TAB PO SCH ×4 (07:02→22:07)
[2017-01-23] MEDS: DEXTROAMPHETAMINE/AMPHETAMINE XR 20 MG CAP PO SCH (08:35)
[2017-01-23] MEDS: LACTOBACILLUS ACIDOPHILUS TAB PO SCH (08:35)
[2017-01-23] MEDS: FERROUS SULFATE 325 MG (65 MG ELEMENTAL IRON) TAB PO SCH ×2 (08:35→22:08)
[2017-01-23] MEDS: POLYETHYLENE GLYCOL 17 GM PKG PO SCH (08:35)
[2017-01-23] MEDS: SERTRALINE HCL 50 MG TAB PO SCH (08:36)
[2017-01-23] MEDS: PANTOPRAZOLE SODIUM 40 MG VIAL IV PUSH SCH ×2 (08:36→22:06)
[2017-01-23] MEDS: LISINOPRIL 5 MG TAB PO SCH (08:36)
[2017-01-23] MEDS: MULTIVITAMIN TAB PO SCH (08:36)
[2017-01-23] MEDS: GABAPENTIN 300 MG CAP PO SCH ×3 (08:36→16:49)
[2017-01-23] MEDS: SODIUM CHLORIDE 0.9% FLUSH 5 ML FLUSH IV SCH ×2 (08:36→22:08)
[2017-01-23] MEDS: ONDANSETRON HCL 4 MG/2 ML VIAL IV PUSH PRN ×2 (10:15→18:59)
--- NOTE | 2017-01-23 11:44 | HHI.PR ---
Subjective Remarks Pt reports that she had difficulty swallowing breakfast this morning. She states that she felt that it get stuck in the lower esophagus and she had increased belching and nausea and eventually feels that the food passes down Objective Vitals Vital Signs Date Time Temp Pulse Resp B/P Pulse Ox O2 Delivery O2 Flow Rate FiO2 01/23/17 09:53 60 01/23/17 09:04 Room Air 01/23/17 08:00 98.4 61 20 101/53 98 01/23/17 06:09 72 01/23/17 04:38 98.0 73 16 112/55 100 01/22/17 23:39 98.7 78 16 94/52 96 01/22/17 20:54 98.7 71 16 117/57 98 01/22/17 20:00 Room Air 01/22/17 16:00 98.5 75 22 117/57 98 01/22/17 12:00 97.9 90 20 116/56 99 01/22/17 01/22/17 01/23/17 15:00 23:00 07:00 Intake Total 540 ml 1200 ml 360 ml Output Total 1000 ml 600 ml Balance 540 ml 200 ml -240 ml Intake Oral 240 ml 1200 ml 360 ml Other 300 ml Output Urine Total 1000 ml 600 ml # Voids 1 # Bowel Movements 0 0 0 Result Diagram: 01/20/17 1630 01/20/17 1630 Imaging Last Impressions Barium Swallow X-Ray 01/22/17 0000 Signed Impressions: Service Date/Time: Sunday, January 22, 2017 16:43 - CONCLUSION: Mild gastroesophageal reflux without mucosal abnormality in the esophagus. Woody Reno MD Abdomen/Pelvis CT 01/21/17 0000 Signed Impressions: Service Date/Time: Saturday, January 21, 2017 23:32 - CONCLUSION: 1. No acute findings in the abdomen or pelvis. 2. Postsurgical findings of the stomach and proximal small bowel. 3. Chronic intrahepatic and extrahepatic biliary ductal dilatation. 4. Status post cholecystectomy. Adelso Ott MD ADDENDUM: Conclusion #5 should read Left upper pole renal calculus unchanged Adelso Ott MD Chest X-Ray 01/20/17 1552 Signed Impressions: Service Date/Time: Friday, January 20, 2017 16:06 - CONCLUSION: No evidence of acute cardiopulmonary disease. Woody Sinha MD Objective Remarks General: NAD, AAOx3 Chest: CTA Cardiac: Regular Abd: +BS, soft nondistended Ext: No edema A/P Problem List: (1) Chest pain Status: Acute Plan: - Pt is 61 y/o with gastric bypass, hx pancreatitis, severe GERD, and DM who presents with CP. - Pt has hx pancreatitis and says in June was seen at [facility] for operative ERCP to evaluate her pancreatitis. She reports lysis of adhesions and also sphincterotomy at that time. - Over past 2 months pt has lost over 20 pounds, having a hard time eating food , severe nausea, vomiting of bile, and pain into chest with pain/pressure to bilateral neck/ears. She has also noted severe hoarseness and was seen by ENT who told her it was reflux. - She was in ED in Dec. and had Lexiscan for CP. It was read as mild apical ischemia. Her transformer stock clerk felt it was not high risk and her sx's were probably GERD. Pt has not recently seen GI. - She was recently in ED 01/09 for aspiration vomitus upon awakening and was given PPI at that time. - Pt presented back to the hospital today after her CP came back and she took 2 NTG. - Then became lightheaded with visual change and passed out. We are told her bp was "40/30s" at the scene but responded to IVF. Pt says these sx's occur daily and she has been using the NTG with relief. - It was felt initially that her sx's could mostly if not all be related to severe GERD/bile acid reflux or could even have esophageal spasm with her description of relief with NTG. - Cardiology has evaluated and pt underwent LHC on 01/21/17 --> Angiographically normal coronary arteries and normal left ventricular systolic function - GI has evaluated the pt underwent evaluation with EGD on 01/22/17 which noted gastric anastomosis with minimal gastritis, which was biopsied. - GI has recommended adding Carafate 1gram QIDACHS to the pts regimen. - Cont. PPI - Barium swallow (01/22) --> Mild esophageal reflux without mucosal abnormality. Pt may have esophageal motility disorder - GI to re-evaluate today ?Esophageal manometry vs. ?need for Botox injections vs. other - DVT prophylaxis (2) GERD (gastroesophageal reflux disease) Status: Acute Plan: - See above (3) Abnormal nuclear stress test Status: Acute Plan: - See above (4) DM (diabetes mellitus) Status: Chronic Plan: - SSI for now. - Hold OHA (5) Hypertension Status: Chronic Assessment and Plan - Pt c/o continued difficulties swallowing solids - Pt describes what sounds like esophageal spasms? - Pt has been having these symptoms for months with significant weight loss and anxiety related to symptoms. - Negative Cardiac w/u, C (01/21/17) --> NO CAD Barium swallow did NOT indicate esophageal dysmotility Case d/w Dr. Young/[facility] GI will repeat EGD 01/24/17 with possible dilation and botox injection Patient examined. Assessment and plan formulated with Tonie Gongora PA-C. I agree with the above. Problem Qualifiers (1) Chest pain: Qualified Code: R07.9 - Chest pain, unspecified type (2) GERD (gastroesophageal reflux disease): Qualified Code: K21.9 - Gastroesophageal reflux disease, esophagitis presence not specified Tonie Gongora Jan 23, 2017 11:44 Olivier Garcia DO Jan 23, 2017 12:45
[2017-01-23] MEDS: SIMETHICONE 125 MG CHEWABLE TAB PO SCH ×3 (12:05→22:06)
--- NOTE | 2017-01-23 13:36 | HHI.GIFU ---
Subjective Remarks Resting in bed. Doing okay with liquids, but not tolerating any solids. States when she eats solids, they become lodged in her lower esophageal area and she has associated nausea, pain. She reports this happened with breakfast and she has been having significant belching since, but states the food bolus is still there. She did have some improvement after the simethicone, but still having significant discomfort. (Dorene Del Rosario) Objective Vitals I&O Vital Signs Date Time Temp Pulse Resp B/P Pulse Ox O2 Delivery O2 Flow Rate FiO2 01/23/17 09:53 60 01/23/17 09:04 Room Air 01/23/17 08:00 98.4 61 20 101/53 98 01/23/17 06:09 72 01/23/17 04:38 98.0 73 16 112/55 100 01/22/17 23:39 98.7 78 16 94/52 96 01/22/17 20:54 98.7 71 16 117/57 98 01/22/17 20:00 Room Air 01/22/17 16:00 98.5 75 22 117/57 98 I/O 01/22/17 01/22/17 01/22/17 01/23/17 01/23/17 01/23/17 07:00 15:00 23:00 07:00 15:00 23:00 Intake Total 0 ml 540 ml 1200 ml 360 ml Output Total 1000 ml 600 ml Balance 0 ml 540 ml 200 ml -240 ml Intake Oral 0 ml 240 ml 1200 ml 360 ml Other 300 ml Output Urine Total 1000 ml 600 ml # Voids 1 1 # Bowel Movements 0 0 0 0 Imaging Last Impressions Barium Swallow X-Ray 01/22/17 0000 Signed Impressions: Service Date/Time: Sunday, January 22, 2017 16:43 - CONCLUSION: Mild gastroesophageal reflux without mucosal abnormality in the esophagus. Woody Reno MD Abdomen/Pelvis CT 01/21/17 0000 Signed Impressions: Service Date/Time: Saturday, January 21, 2017 23:32 - CONCLUSION: 1. No acute findings in the abdomen or pelvis. 2. Postsurgical findings of the stomach and proximal small bowel. 3. Chronic intrahepatic and extrahepatic biliary ductal dilatation. 4. Status post cholecystectomy. Adelso Ott MD ADDENDUM: Conclusion #5 should read Left upper pole renal calculus unchanged Adelso Ott MD Chest X-Ray 01/20/17 1552 Signed Impressions: Service Date/Time: Friday, January 20, 2017 16:06 - CONCLUSION: No evidence of acute cardiopulmonary disease. Woody Sinha MD Physical Exam HEENT: Normocephalic; atraumatic; no jaundice. Throat is clear. NECK: Neck is supple, no JVD, no lymphadenopathy. CHEST: CTA CARDIAC: RRR ABDOMEN: Soft, nondistended, nontender; no hepatosplenomegaly; bowel sounds are present in all four quadrants. EXTREMITIES: No clubbing, cyanosis, or edema. SKIN: Normal; no rash; no jaundice. CAN CLOSING MACHINE OPERATOR: No focal deficits; alert and oriented times three. (Dorene Del Rosario) Assessment and Plan Plan ASSESSMENT: - Pt with severe odynophagia, nausea, vomiting, epigastric pain and significant weight loss of 40 lbs since May. Pt with complicated medical hx of a gastric bypass in 1999, hx of pancreatitis with recent ERCP and Spinchterotomy, and IBS controlled. Had colonoscopy in 2016 normal per patient. Abdomen/Pelvis CT (01/21/17)----> 1. No acute findings in the abdomen or pelvis. 2. Postsurgical findings of the stomach and proximal small bowel. 3. Chronic intrahepatic and extrahepatic biliary ductal dilatation. 4. Status post cholecystectomy. ADDENDUM: Conclusion #5 should read Left upper pole renal calculus unchanged Barium Swallow X-Ray (01/22/17)----> Mild gastroesophageal reflux without mucosal abnormality in the esophagus. S/P EGD (01/22/17)----> Gastric anastomosis with minimal gastritis, biopsied. Retroflexed views revealed no abnormalities. PPI. Not tolerating any solids. States when she eats solids, they become lodged in her lower esophageal area and she has associated nausea, pain. She reports this happened with breakfast and she has been having significant belching since, but states the food bolus is still there. She did have some improvement after the simethicone, but still having significant discomfort. Await pathology. PPI. Carafate. Simethicone. Will plan for egd with possible dilatation, possible botox injections tomorrow. PLAN: - Plan for egd with possible dilatation, possible botox injection in am - Obtain consents - JEWEL - NPO after MN - Await pathology - Cont. PPI - Cont. Carafate - Cont. Simethicone - Supportive care - EGD in 3 years EGD - Further recommendations will follow based on results of above - Patient was seen and examined by Dr. Young and myself this consult is written on his behalf. (Dorene Del Rosario) Physician Comments Seen and examined with [facility], repeat egd/botox/dilation planned for tomorrow. Discussed with Dr. Garcia (Pierce Young MD) Dorene Del Rosario Jan 23, 2017 13:36 Pierce Young MD Jan 23, 2017 20:37
[2017-01-23] MEDS: SODIUM CHLOR 0.9% 1000 ML INJ 1,000 ML IV SCH (20:02)
[2017-01-23] MEDS: ATORVASTATIN 40 MG TAB PO SCH (22:07)
[2017-01-24] MEDS: SODIUM CHLOR 0.9% 1000 ML INJ 1,000 ML IV SCH ×2 (02:42→09:22)
[2017-01-24 04:47] VITALS: BP_SYST 55; PULSE 58; RESP 16; TEMP 98.2; O2SAT 96
[2017-01-24] MEDS: CHOLESTYRAMINE 4 GM PACKET PO SCH (05:55)
[2017-01-24] MEDS: SIMETHICONE 125 MG CHEWABLE TAB PO SCH (05:56)
[2017-01-24] MEDS: SUCRALFATE 1 GM TAB PO SCH ×2 (05:56→11:58)
[2017-01-24 08:00] VITALS: BP 110/57; PULSE 58; RESP 14; TEMP 98.3; O2SAT 98
[2017-01-24] MEDS: LISINOPRIL 5 MG TAB PO SCH (08:58)
[2017-01-24 09:30] VITALS: BP 110/57; PULSE 58; RESP 16; TEMP 98.4; O2SAT 98
[2017-01-24] MEDS ORDERED: ONABOTULINUMTOXINA INJ 100 UNITS/VIAL ONE (09:45)
[2017-01-24] MEDS ORDERED: PROPOFOL 200 MG/20 ML AMP IV ONE (10:27)
[2017-01-24 10:41] VITALS: TEMP 97.9
[2017-01-24 11:02] VITALS: BP 112/61; PULSE 56; RESP 16; O2SAT 96
[2017-01-24] MEDS ORDERED: LISI-519 PO (11:37)
[2017-01-24] MEDS ORDERED: SIME1CHW11 PO (11:37)
[2017-01-24] MEDS ORDERED: PROT40TA PO (11:37)
[2017-01-24] MEDS ORDERED: CARA1TAB6 PO (11:37)
--- NOTE | 2017-01-24 11:39 | HHI.DCPOC ---
Discharge Care Plan Diagnosis: (1) Chest pain (2) Dysphagia (3) Weight loss (4) Anemia (5) Hyperlipidemia (6) DM (diabetes mellitus) (7) Hypertension Goals to Promote Your Health * To prevent worsening of your condition and complications * To maintain your health at the optimal level Directions to Meet Your Goals Take your medications as prescribed Follow your dietary instruction Follow activity as directed Keep your appointments as scheduled Take your immunizations and boosters as scheduled If your symptoms worsen call your PCP, if no PCP go to Urgent Care Center or Emergency Room Smoking is Dangerous to Your Health. Avoid second hand smoke Call the 24-hour hour crisis hotline for domestic abuse at Tonie Gongora Jan 24, 2017 11:39 Olivier Garcia DO Jan 24, 2017 15:57
[2017-01-24] MEDS: GABAPENTIN 300 MG CAP PO SCH (11:58)
[2017-01-24] MEDS: LACTOBACILLUS ACIDOPHILUS TAB PO SCH (11:58)
[2017-01-24] MEDS: POLYETHYLENE GLYCOL 17 GM PKG PO SCH (11:58)
[2017-01-24] MEDS: MULTIVITAMIN TAB PO SCH (11:59)
[2017-01-24] MEDS: DEXTROAMPHETAMINE/AMPHETAMINE XR 20 MG CAP PO SCH (11:59)
[2017-01-24] MEDS: FERROUS SULFATE 325 MG (65 MG ELEMENTAL IRON) TAB PO SCH (11:59)
[2017-01-24] MEDS ORDERED: METOCLOPRAMIDE HCL 10 MG TAB PO SCH ×2 (12:00)
[2017-01-24] MEDS: SERTRALINE HCL 50 MG TAB PO SCH (12:02)
[2017-01-24] MEDS: SODIUM CHLORIDE 0.9% FLUSH 5 ML FLUSH IV SCH (12:02)
[2017-01-24] MEDS: PANTOPRAZOLE SODIUM 40 MG VIAL IV PUSH SCH (12:03)
[2017-01-24] MEDS ORDERED: ERYT250T13 PO (12:09)
--- NOTE | 2017-01-24 12:21 | GIPROC ---
[facility] [address] [facility]. [facility], [id number] EGD PROCEDURE REPORT EXAM DATE: 01/24/2017 PATIENT NAME: Dakotah Patel MR #: [id number] BIRTHDATE: 1955 ATTENDING: Pierce Young MD ORDER #: [id number] MAIL TECHNICIAN: Isra Lowe and Jayme Bocanegra STATUS: inpatient INDICATIONS: The patient is a 61 yr old female here for an EGD due to dyspepsia and dysphagia PROCEDURE PERFORMED: EGD w/ dilation of esophagus via guidewire EGD w/ balloon dilation of esophagus MEDICATIONS: None and Per Anesthesia. TOPICAL ANESTHETIC: CONSENT: The patient understands the risks and benefits of the procedure and understands that these risks include, but are not limited to: sedation, allergic reaction, infection, perforation and/or bleeding. Alternative means of evaluation and treatment include, among others: physical exam, x-rays, and/or surgical intervention. The patient elects to proceed with this endoscopic procedure. medical equipment was checked for proper function. Hand hygiene and appropriate measures for infection prevention was taken. After the risks, benefits and alternatives of the procedure were thoroughly explained, Informed consent was verified, confirmed and timeout was successfully executed by the treatment team. The patient was anesthetized with topical anesthesia and the Pentax EG-[id number] endoscope was introduced through the mouth and advanced to the second portion of the duodenum. Retroflexed views revealed no abnormalities The gastroscope was then slowly withdrawn and removed. Gastric anastomosis dilated with 17mm savary and 20 Fr. CRE balloon. ADVERSE EVENTS: There were no complications. IMPRESSIONS: 1. Gastric anastomosis dilated with 17mm savary and 20 Fr. CRE balloon 2. Retroflexed views revealed no abnormalities RECOMMENDATIONS: 1. Anti-reflux regimen 2. Continue PPI 3. Reglan 10 mg tid ac PATIENT CONDITION: stable DISPOSITION: Inpatient REPEAT EXAM: Return as needed for EGD with dilatation Pierce Young MD eSigned: Pierce Young MD 01/24/2017 10:51 AM cc: [id number]
--- NOTE | 2017-01-24 12:49 | HHI.FF ---
Face to Face Verification Diagnosis: (1) Hx of acute pancreatitis (2) Nausea (3) Epigastric abdominal pain (4) GERD (gastroesophageal reflux disease) (5) Weight loss (6) DM (diabetes mellitus) (7) Hypertension Physical Therapy Order: Evaluate and Treat, Improve ambulation, Strength and gait training Home Health Nursing Order: Medical education Signs/symptoms of disease process Medication education-adverse effect Wound care and dressing changes I have seen patient Dakotah Patel on 01/24/17. My clinical findings support the need for the requested home health care services because: Deconditioned w/ increased weakness Med compliance is questionable Limited ability to care for self Need for psychosocial assistance I certify that my clinical findings support that this patient is homebound because: Unsafe to leave home unassisted Need for psychosocial assistance Unable to use public transportation Olivier Garcia DO Jan 24, 2017 12:49
[2017-01-24] MEDS ORDERED: METOCLOPRAMIDE HCL 10 MG/2 ML VIAL IV PUSH SCH (14:00)
--- NOTE | 2017-02-10 11:23 | HHI.DS ---
Discharge Summary Admission Date Jan 20, 2017 at 18:30 Discharge Date: Jan 24, 2017 Admitting Diagnosis cp (1) Chest pain Diagnosis: Principal (2) GERD (gastroesophageal reflux disease) Diagnosis: Principal (3) Abnormal nuclear stress test Diagnosis: Principal (4) DM (diabetes mellitus) Diagnosis: Secondary (5) Hypertension Diagnosis: Secondary Consultants Dr. Alex Dobbins, Cardiology Dr. Pierce Young, Gastroenterology Procedures - [facility] on 01/21/17 --> Angiographically normal coronary arteries and normal left ventricular systolic function - EGD on 01/22/17 which noted gastric anastomosis with minimal gastritis, which was biopsied. - Repeat EGD with dilation (01/24/17) performed by Dr. Pierce Young Brief History Pt is 61 yo with gastric bypass, hx pancreatitis, severe gerd, dm who presents with cp. Pt has hx pancreatitis and says in June was seen at [facility] for operative ercp to evaluate her pancreatitis. She reports lysis of adhesions and also sphinterotomy at that time. Over past 2 months pt has lost over 20 pounds, having a hard time eating food, severe nausea, and vomting of bile. pain into chest with pain/pressure to bilateral neck/ears. Severe hoarse and was even seen by ent who told her it was refux. she was in ED in Dec. and had lexiscan for cp. It was read as mild apical ischemia. 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 She was with her children today and her cp came back and she took 2 ntg. Then became lightheaded with visual change and passed out. We are told her bp was "40/30s" at the seen but responded to ivf. Pt says her sx's occur daily and she has been using the ntg with relief. She was recently in ED 01/09 for aspiration vomitus upon awakening. given ppi at that time. Pt has not recently seen GI. Imaging Last Impressions Barium Swallow X-Ray 01/22/17 0000 Signed Impressions: Service Date/Time: Sunday, January 22, 2017 16:43 - CONCLUSION: Mild gastroesophageal reflux without mucosal abnormality in the esophagus. Woody Reno MD Abdomen/Pelvis CT 01/21/17 0000 Signed Impressions: Service Date/Time: Saturday, January 21, 2017 23:32 - CONCLUSION: 1. No acute findings in the abdomen or pelvis. 2. Postsurgical findings of the stomach and proximal small bowel. 3. Chronic intrahepatic and extrahepatic biliary ductal dilatation. 4. Status post cholecystectomy. Adelso Ott MD ADDENDUM: Conclusion #5 should read Left upper pole renal calculus unchanged Adelso Ott MD Chest X-Ray 01/20/17 0352 Signed Impressions: Service Date/Time: Friday, January 20, 2017 16:06 - CONCLUSION: No evidence of acute cardiopulmonary disease. Woody Sinha MD PE at Discharge General: NAD, AAOx3 Chest: CTA Cardiac: Regular Abd: +BS, soft nondistended Ext: No edema Hospital Course (1) Chest pain Status: Acute Plan: - Pt is 61 y/o with gastric bypass, hx pancreatitis, severe GERD, and DM who presents with CP. - Pt has hx pancreatitis and says in June was seen at [facility] for operative ERCP to evaluate her pancreatitis. She reports lysis of adhesions and also sphincterotomy at that time. - Over past 2 months pt has lost over 20 pounds, having a hard time eating food , severe nausea, vomiting of bile, and pain into chest with pain/pressure to bilateral neck/ears. She has also noted severe hoarseness and was seen by ENT who told her it was reflux. - She was in ED in Dec. and had Lexiscan for CP. It was read as mild apical ischemia. Her aircraft metalsmith felt it was not high risk and her sx's were probably GERD. Pt has not recently seen GI. - She was recently in ED 01/09 for aspiration vomitus upon awakening and was given PPI at that time. - Pt presented back to the hospital today after her CP came back and she took 2 NTG. - Then became lightheaded with visual change and passed out. We are told her bp was "40/30s" at the scene but responded to IVF. Pt says these sx's occur daily and she has been using the NTG with relief. - It was felt initially that her sx's could mostly if not all be related to severe GERD/bile acid reflux or could even have esophageal spasm with her description of relief with NTG. - Cardiology has evaluated and pt underwent LHC on 01/21/17 --> Angiographically normal coronary arteries and normal left ventricular systolic function - GI has evaluated the pt underwent evaluation with EGD on 01/22/17 which noted gastric anastomosis with minimal gastritis, which was biopsied. - GI has recommended adding Carafate 1gram QIDACHS to the pts regimen. - Cont. PPI - Barium swallow (01/22) --> Mild esophageal reflux without mucosal abnormality. Pt may have esophageal motility disorder - Repeat EGD with dilation (01/24/17) performed by Dr. Pierce Young - Pt had relief afterwards and tolerating PO intake - Pt discharged to home with GI f/u in 2-3 weeks (2) GERD (gastroesophageal reflux disease) Status: Acute Plan: - See above (3) Abnormal nuclear stress test Status: Acute Plan: - See above (4) DM (diabetes mellitus) Status: Chronic Plan: - resume prior OHA upon discharge Pt Condition on Discharge: Stable Discharge Disposition: Disch w/ Home Health Serv Discharge Instructions DIET: Follow Instructions for: As Tolerated, No Restrictions Activities you can perform: Regular-No Restrictions Follow up Referrals: Gastroenterology - 2 Weeks with Pierce Young MD PCP Follow-up - [address] Claudio Yee New Medications: Erythromycin Base (Erythromycin Base) 250 Mg Tab 250 MG PO TIDAC gastric motility #93 Ref 0 TAB Lisinopril (Lisinopril) 5 Mg Tab 5 MG PO DAILY htn #31 TAB Simethicone (Gas Relief Maximum Streng) 125 Mg Chw 125 MG PO Q8HR gas #93 EA Sucralfate (Carafate) 1 Gm Tab 1 GM PO ACHS gastritis #120 TAB Changed Medications: Pantoprazole (Protonix) 40 Mg Tab 40 MG PO BID Reflux #62 Ref 0 TAB (Changed from: DAILY; 30) Continued Medications: Amphetamine-Dextroamphetamine ER 24 HR (Adderall Xr 24 HR) 20 Mg Cap 20 MG PO DAILY Once daily in the morning. Hyperactivity Control #30 Ref 0 CAP Armodafinil (Nuvigil) 250 Mg Tab 250 MG PO DAILY #30 Ref 0 TAB Calcium Carbonate (Calcium) 600 Mg Tab 600 MG PO BID Cholestyramine (Questran) 4 Gm/Pkt Powd 4 GM PO BID 1 packet contains 4gm of cholestyramine. Dyslipidemia #1 Ref 0 BOX Cyanocobalamin Inj (Cyanocobalamin Inj) 1,000 Mcg/Ml Inj 1000 MCG IM Q30D #1 Ref 0 VIAL Ergocalciferol (Drisdol) 50,000 Unit Cap 49900 UNITS PO WEEKLY ON WEDNESDAYS Nutritional Supplement #30 Ref 0 CAP Ferrous Sulfate (Ferrous Sulfate) 325 Mg Tab 325 MG PO BID Nutritional Supplement #30 Ref 0 TAB Gabapentin (Gabapentin) 600 Mg Tab 600 MG PO TID #90 Ref 0 TAB Lactobacillus Acidophilus (Probiotic) 1 Cap Cap 1 CAP PO DAILY Nutritional Supplement #90 Ref 0 CAP Lorazepam (Lorazepam) 1 Mg Tab 1 MG PO DAILY PRN ANXIETY Ref 0 TAB Morphine IR (Morphine IR) 15 Mg Tab 15 MG PO TID PRN PAIN Ref 0 TAB Multiple Vitamin (Multi Vitamin) 1 Tab Tab 1 TAB PO DAILY TAB Nitroglycerin SL (Nitroglycerin SL) 0.4 Mg Subl 0.4 MG SL DIRECTED ONE TABLET UNDER THE TONGUE NEEDED FOR CHEST PAIN, MAY REPEAT EVERY FIVE MINUTES FOR A TOTAL OF 3 DOSES OR CALL 911 IF NO RELIEF PRN CHEST PAIN #100 Ref 0 TAB.SL Ondansetron Odt (Zofran Odt) 4 Mg Tab 4 MG SL Q6HR PRN Nausea/Vomiting #30 Ref 0 TAB Polyethylene Glycol 3350 Powder (Miralax Powder) 17 Gm Powd 17 GM PO DAILY Mix and dissolve one measuring cap-ful (17 grams) in water or juice. Constipation #1 Ref 0 BOTTLE Rosuvastatin (Crestor) 20 Mg Tab 20 MG PO HS Cholesterol Management #30 Ref 0 TAB Sertraline (Zoloft) 100 Mg Tab 150 MG PO DAILY #30 Ref 0 TAB Discontinued Medications: Lisinopril-Hctz (Lisinopril-Hctz) 20-12.5 Mg Tab 1 TAB PO DAILY Blood Pressure Management #30 Ref 0 TAB Metformin (Metformin) 500 Mg Tab 500 MG PO DAILY With a meal Blood Sugar Management #30 Ref 0 TAB Metoprolol Tartrate (Metoprolol Tartrate) 25 Mg Tab 25 MG PO BID Chest Pain #60 Ref 0 TAB Olivier Garcia DO Feb 10, 2017 11:23
== END 2017-01-24 14:10 | disposition home or self-care (01) | DRG 392 ==
LOC: NEPC 15:40 → NEDA 18:30 → N04B 21:50
PROVIDERS: ADMIT Hospitalist; ATTEND Hospitalist
PROC: B211YZZ Fluoroscopy of Multiple Coronary Arteries using Other Contrast (ICD-10-PCS; 2017-01-21)
PROC: B215YZZ Fluoroscopy of Left Heart using Other Contrast (ICD-10-PCS; 2017-01-21)
PROC: 4A023N7 Measurement of Cardiac Sampling and Pressure, Left Heart, Percutaneous Approach (ICD-10-PCS; principal; 2017-01-21 13:15)
PROC: 0DB68ZX Excision of Stomach, Via Natural or Artificial Opening Endoscopic, Diagnostic (ICD-10-PCS; 2017-01-22)
PROC: 0D758ZZ Dilation of Esophagus, Via Natural or Artificial Opening Endoscopic (ICD-10-PCS; 2017-01-24)
DX: K21.9 Gastro-esophageal reflux disease without esophagitis (principal); E11.42 Type 2 diabetes mellitus with diabetic polyneuropathy; E11.22 Type 2 diabetes mellitus with diabetic chronic kidney disease; E46 Unspecified protein-calorie malnutrition; E78.5 Hyperlipidemia, unspecified; R13.10 Dysphagia, unspecified; D64.9 Anemia, unspecified; F32.9 Major depressive disorder, single episode, unspecified; I12.9 Hypertensive chronic kidney disease with stage 1 through stage 4 chronic kidney disease, or unspecified chronic kidney disease; K29.70 Gastritis, unspecified, without bleeding; N18.3 Chronic kidney disease, stage 3 (moderate); Z79.84 Long term (current) use of oral hypoglycemic drugs; Z98.84 Bariatric surgery status
CPT/HCPCS: 71010; 74177; 74230; 80053; 80061; 82550; 83690; 83735; 83880; 84484; 85025; 85610; 85730; 88305; 88312; 93005; 93458; 96361; 96374; 96375; C1726; C1769; C1893; C9113; J1644; J2250; J2270; J2405; J3010; J7040; Q9963; Q9967